=== PATIENT | male | born 1950 | race Caucasian/White ===

== ENCOUNTER 2019-04-08 13:56 | Inpatient (IN) ==
[2019-04-08 15:09] LABS: Basophils # 0.1 10*3/uL (0.0-0.2); Basophils % 0.5 % (0.0-0.8); Eosinophils % 0.1 % (0.00-10.9); Hematocrit 44.9 VOL% (42.0-52.0); Hemoglobin 15.3 GM/DL (14.0-18.0); Immature Granulocytes Absolute 0.58 #; Lymphocytes # 0.5 10*3/uL (1.4-4.0); Lymphocytes % 3.9 % (21.2-54.2); Mean Corpuscular HGB Conc 34.1 GM/DL (32-36); Mean Platelet Volume 9.2 FL (9.6-12.0); Monocytes % 5.2 % (1.7-12.7); Neutrophils % 85.3 % (38.7-73.9); Platelet Count 238 T/CUMM (130-400); Red Blood Count 5.22 MC/CUMM (3.8-5.5); Red Cell Distribution Width 16.9 % (9.3-17.3); White Blood Count 11.7 T/CUMM (4-12)
[2019-04-08 15:21] LABS: INR 0.9; PT Patient Result 10.1 SECS; Partial Thromboplastin Time 21.8 SECS (0-40)
[2019-04-08 15:38] LABS: Albumin 3.3 G/DL (3.4-5.0); Bilirubin,Total 0.9 MG/DL (0.2-1.0); Calcium 9.9 MG/DL (8.5-10.1); Osmolality,Calculated 285.5 MOS/KG (273-304); Total Protein 6.5 G/DL (6.4-8.3)
[2019-04-08] MEDS ORDERED: cefTRIAXone 1,000 MG in SODIUM CHLORIDE 0.9% 100 ML IV STA (16:40)
[2019-04-08] MEDS ORDERED: ONDANSETRON 4 MG/2 ML VIAL IV STA (16:40)
[2019-04-08] MEDS ORDERED: methylPREDNISolone SOD SUC 125 MG/2 ML VIAL IV STA (16:40)
[2019-04-08] MEDS ORDERED: ALBUTEROL 2.5 MG/3 ML NEB RESP TX SCH (17:00)
[2019-04-08 17:09] LABS: Lymphocytes 3 % (20-55); Platelet Estimate Adequate; Segmented Neutrophils 93 % (50-85); Total Cells Counted 100
[2019-04-08] MEDS ORDERED: PIPERACILLIN/TAZOBACTAM 3,375 MG in SODIUM CHLORIDE 0.9% 100 ML IV STA (18:09)
[2019-04-08 18:47] LABS: Apearance,Urine Slightly Hazy (Clear); Bilirubin,Urine Negative (Negative); Blood, Urine Negative (Negative); Calcium Oxalate Crystals,Urine Occasional /HPF (Few); Glucose,Urine (UA) Negative (Negative); Hyaline Casts,Urine 28 /LPF (0-3); Ketones,Urine Negative (Negative); Mucus,Urine Occasional /LPF (Occasional); Nitrite,Urine Negative (Negative); Protein,Urine 30 MG/DL; RBC,Urine 1 /HPF (0-4); Squamous Epithelial Cell,Urine Occasional /HPF (0-10); Urine Color Yellow (Yellow); Urine Specific Gravity 1.045 (1.001-1.035); Urine Urobilinogen < 2.0 EU/DL (0.2-1.0); WBC,Urine 2 /HPF (0-6)
[2019-04-08] MEDS ORDERED: traMADol 50 MG TABLET PO PRN (20:38)
[2019-04-08] MEDS ORDERED: NIFEdipine 10 MG CAPSULE PO PRN (20:38)
[2019-04-08] MEDS ORDERED: MORPHINE 4 MG/1 ML VIAL IV PRN (20:38)
[2019-04-08] MEDS ORDERED: ACETAMINOPHEN 325 MG TABLET PO PRN (20:38)
[2019-04-08] MEDS ORDERED: ONDANSETRON 4 MG/2 ML VIAL IV PRN (20:38)
[2019-04-08] MEDS: SODIUM CHLORIDE 0.9% 1,000 ML IV SCH (21:44)
[2019-04-08] MEDS: THEOPHYLLINE ER (24 HR) 400 MG TABLET PO SCH (21:45)
[2019-04-08] MEDS: cloNIDine 0.1 MG TABLET PO SCH (21:45)
[2019-04-08] MEDS: FLUTICASONE/SALMETEROL 500-50 DISKUS 14 DOSE INH SCH (21:46)
[2019-04-08] MEDS: MONTELUKAST 10 MG TABLET PO SCH (21:46)
[2019-04-08] MEDS: ALBUTEROL 0.4 MG/ML 30 ML/BOTTLE PO SCH (21:47)
[2019-04-08] MEDS: ENOXAPARIN 30 MG/0.3 ML SYRINGE SUBCUT SCH (21:53)
[2019-04-08] MEDS: LEVOFLOXACIN INJ 500 MG in PREMIX 1 EACH IV SCH (22:48)
[2019-04-09] MEDS ORDERED: MEROPENEM 1,000 MG in SODIUM CHLORIDE 0.9% 100 ML IV SCH
[2019-04-09] MEDS: ALBUTEROL/IPRATROPIUM 3 ML NEB RESP TX SCH ×4 (00:31→19:00)
[2019-04-09 01:06] LABS: Basophils % 0.3 % (0.0-0.8); Hematocrit 40.7 VOL% (42.0-52.0); Hemoglobin 13.6 GM/DL (14.0-18.0); Immature Granulocytes % 3.2 %; Immature Granulocytes Absolute 0.34 #; Lymphocytes # 0.2 10*3/uL (1.4-4.0); Lymphocytes % 2.3 % (21.2-54.2); Mean Corpuscular HGB Conc 33.4 GM/DL (32-36); Mean Corpuscular Volume 87.9 FL (87-102); Mean Platelet Volume 9.6 FL (9.6-12.0); Monocytes % 2.2 % (1.7-12.7); Platelet Count 224 T/CUMM (130-400); Red Blood Count 4.63 MC/CUMM (3.8-5.5); Red Cell Distribution Width 16.9 % (9.3-17.3); White Blood Count 10.6 T/CUMM (4-12)
[2019-04-09 01:15] LABS: Calcium 9.2 MG/DL (8.5-10.1); Osmolality,Calculated 290.8 MOS/KG (273-304)
[2019-04-09] MEDS: methylPREDNISolone SOD SUC 40 MG/1 ML VIAL IV SCH ×3 (02:04→16:47)
[2019-04-09 03:24] LABS: Band Neutrophils 1 % (0-10); Lymphocytes 1 % (20-55); Myelocytes 2 %; Segmented Neutrophils 96 % (50-85); Total Cells Counted 100
[2019-04-09 03:25] LABS: Anisocytosis Slight; Microcytosis 1+; Polychromasia Slight
[2019-04-09 03:26] LABS: Platelet Estimate Normal; Stomatocytes Slight
[2019-04-09] MEDS: PANTOPRAZOLE 40 MG TABLET PO SCH (09:19)
[2019-04-09] MEDS: CITALOPRAM 20 MG TABLET PO SCH (09:19)
[2019-04-09] MEDS: cloNIDine 0.1 MG TABLET PO SCH ×2 (09:19→21:15)
[2019-04-09] MEDS: THEOPHYLLINE ER (24 HR) 400 MG TABLET PO SCH ×2 (09:19→21:13)
[2019-04-09] MEDS: FLUTICASONE/SALMETEROL 500-50 DISKUS 14 DOSE INH SCH ×2 (09:22→21:12)
[2019-04-09] MEDS: ALBUTEROL 0.4 MG/ML 30 ML/BOTTLE PO SCH ×3 (09:24→21:17)
[2019-04-09] MEDS: CEFEPIME 1,000 MG in SYRINGE 1 EACH IV SCH ×2 (12:08→21:12)
[2019-04-09] MEDS: SODIUM CHLORIDE 0.9% 1,000 ML IV SCH (16:47)
[2019-04-09] MEDS: MONTELUKAST 10 MG TABLET PO SCH (21:15)
[2019-04-09] MEDS: ENOXAPARIN 30 MG/0.3 ML SYRINGE SUBCUT SCH (21:16)
[2019-04-09] MEDS: ZALEPLON 5 MG CAPSULE PO PRN (21:18)
[2019-04-09] MEDS: LEVOFLOXACIN INJ 500 MG in PREMIX 1 EACH IV SCH (22:18)
[2019-04-10] MEDS: ALBUTEROL/IPRATROPIUM 3 ML NEB RESP TX SCH ×5 (00:46→20:38)
[2019-04-10] MEDS: methylPREDNISolone SOD SUC 40 MG/1 ML VIAL IV SCH ×3 (01:19→16:45)
[2019-04-10] MEDS: SODIUM CHLORIDE 0.9% 1,000 ML IV SCH ×3 (01:20→18:13)
[2019-04-10] MEDS: CEFEPIME 1,000 MG in SYRINGE 1 EACH IV SCH ×3 (03:53→20:48)
[2019-04-10 07:50] LABS: Basophils % 0.3 % (0.0-0.8); Hematocrit 39.1 VOL% (42.0-52.0); Hemoglobin 12.5 GM/DL (14.0-18.0); Immature Granulocytes % 4.9 %; Immature Granulocytes Absolute 0.63 #; Lymphocytes # 0.3 10*3/uL (1.4-4.0); Lymphocytes % 2.6 % (21.2-54.2); Mean Corpuscular Volume 90.3 FL (87-102); Mean Platelet Volume 8.8 FL (9.6-12.0); Monocytes % 3.7 % (1.7-12.7); Neutrophils % 88.5 % (38.7-73.9); Platelet Count 181 T/CUMM (130-400); Red Blood Count 4.33 MC/CUMM (3.8-5.5); Red Cell Distribution Width 16.7 % (9.3-17.3)
[2019-04-10 08:07] LABS: Albumin 2.7 G/DL (3.4-5.0); Bilirubin,Total 0.7 MG/DL (0.2-1.0); Calcium 8.6 MG/DL (8.5-10.1); Osmolality,Calculated 286.4 MOS/KG (273-304); Total Protein 5.3 G/DL (6.4-8.3)
[2019-04-10 08:44] LABS: Lymphocytes 4 % (20-55); Segmented Neutrophils 94 % (50-85); Total Cells Counted 100
[2019-04-10 08:45] LABS: Hypochromasia 1+; Microcytosis 1+; Platelet Estimate Adequate
[2019-04-10] MEDS: CITALOPRAM 20 MG TABLET PO SCH (08:55)
[2019-04-10] MEDS: THEOPHYLLINE ER (24 HR) 400 MG TABLET PO SCH ×2 (08:56→20:50)
[2019-04-10] MEDS: PANTOPRAZOLE 40 MG TABLET PO SCH (08:57)
[2019-04-10] MEDS: ALBUTEROL 0.4 MG/ML 30 ML/BOTTLE PO SCH ×3 (09:05→21:03)
[2019-04-10] MEDS: FLUTICASONE/SALMETEROL 500-50 DISKUS 14 DOSE INH SCH ×2 (09:09→20:53)
[2019-04-10] MEDS: cloNIDine 0.1 MG TABLET PO SCH (11:27)
[2019-04-10] MEDS: MONTELUKAST 10 MG TABLET PO SCH (20:51)
[2019-04-10] MEDS: LEVOFLOXACIN INJ 500 MG in PREMIX 1 EACH IV SCH (23:04)
[2019-04-10] MEDS: ZALEPLON 5 MG CAPSULE PO PRN (23:44)
[2019-04-11] MEDS: methylPREDNISolone SOD SUC 40 MG/1 ML VIAL IV SCH ×3 (00:34→16:11)
[2019-04-11] MEDS: ALBUTEROL/IPRATROPIUM 3 ML NEB RESP TX SCH ×4 (01:42→19:50)
[2019-04-11] MEDS: SODIUM CHLORIDE 0.9% 1,000 ML IV SCH ×4 (02:51→21:47)
[2019-04-11] MEDS: CEFEPIME 1,000 MG in SYRINGE 1 EACH IV SCH ×3 (04:00→21:45)
[2019-04-11 04:50] LABS: Basophils % 0.4 % (0.0-0.8); Hematocrit 35.7 VOL% (42.0-52.0); Hemoglobin 11.5 GM/DL (14.0-18.0); Immature Granulocytes % 6.8 %; Lymphocytes # 0.2 10*3/uL (1.4-4.0); Lymphocytes % 1.6 % (21.2-54.2); Mean Corpuscular HGB Conc 32.2 GM/DL (32-36); Mean Corpuscular Volume 90.6 FL (87-102); Mean Platelet Volume 9.3 FL (9.6-12.0); Monocytes % 4.1 % (1.7-12.7); NRBC # 0.02 10*3/uL; Neutrophils % 87.1 % (38.7-73.9); Platelet Count 163 T/CUMM (130-400); Red Blood Count 3.94 MC/CUMM (3.8-5.5); Red Cell Distribution Width 16.6 % (9.3-17.3); White Blood Count 10.3 T/CUMM (4-12)
[2019-04-11 05:16] LABS: Albumin 2.5 G/DL (3.4-5.0); Bilirubin,Total 0.8 MG/DL (0.2-1.0); Calcium 8.3 MG/DL (8.5-10.1); Osmolality,Calculated 287.3 MOS/KG (273-304)
[2019-04-11 05:48] LABS: Anisocytosis 1+; Band Neutrophils 3 % (0-10); Lymphocytes 2 % (20-55); Segmented Neutrophils 94 % (50-85); Total Cells Counted 100
[2019-04-11 05:49] LABS: Platelet Estimate Adequate
[2019-04-11] MEDS: PANTOPRAZOLE 40 MG TABLET PO SCH (08:10)
[2019-04-11] MEDS: CITALOPRAM 20 MG TABLET PO SCH (08:10)
[2019-04-11] MEDS: THEOPHYLLINE ER (24 HR) 400 MG TABLET PO SCH ×2 (08:10→21:44)
[2019-04-11] MEDS: ALBUTEROL 0.4 MG/ML 30 ML/BOTTLE PO SCH ×3 (08:11→23:24)
[2019-04-11] MEDS: FLUTICASONE/SALMETEROL 500-50 DISKUS 14 DOSE INH SCH ×2 (08:11→21:43)
[2019-04-11] MEDS ORDERED: diphenhydrAMINE 50 MG/1 ML VIAL IM ONE (08:56)
[2019-04-11] MEDS ORDERED: LIDOCAINE 2% 20 ML VIAL RESP TX ONE (08:56)
[2019-04-11] MEDS ORDERED: LIDOCAINE 1% 20 ML VIAL MISC INJ ONE (08:56)
[2019-04-11] MEDS ORDERED: MEPERIDINE 50 MG/1 ML VIAL IM ONE (08:56)
[2019-04-11] MEDS ORDERED: LIDOCAINE 2% VISCOUS 100 ML BOTTLE SWISH/SPIT ONE (08:56)
[2019-04-11] MEDS ORDERED: BENZONATATE 100 MG CAPSULE PO ONE (08:59)
[2019-04-11 09:52] LABS: PT Patient Result 10.4 SECS
[2019-04-11] MEDS ORDERED: EPINEPHrine 1 MG/ML VIAL ET ONE (10:40)
[2019-04-11] MEDS ORDERED: ZALEPLON 5 MG CAPSULE PO PRN (15:38)
[2019-04-11] MEDS: MONTELUKAST 10 MG TABLET PO SCH (21:45)
[2019-04-11] MEDS: LEVOFLOXACIN INJ 500 MG in PREMIX 1 EACH IV SCH (23:22)
[2019-04-12] MEDS: ALBUTEROL 0.4 MG/ML 30 ML/BOTTLE PO SCH ×4 (00:26→22:01)
[2019-04-12] MEDS: SODIUM CHLORIDE 0.9% 1,000 ML IV SCH (01:35)
[2019-04-12] MEDS: methylPREDNISolone SOD SUC 40 MG/1 ML VIAL IV SCH ×3 (01:36→17:13)
[2019-04-12] MEDS: ALBUTEROL/IPRATROPIUM 3 ML NEB RESP TX SCH ×4 (01:40→19:18)
[2019-04-12] MEDS: CEFEPIME 1,000 MG in SYRINGE 1 EACH IV SCH ×3 (04:01→20:37)
[2019-04-12 05:32] LABS: Basophils % 0.5 % (0.0-0.8); Eosinophils % 0.1 % (0.00-10.9); Hematocrit 34.9 VOL% (42.0-52.0); Hemoglobin 11.4 GM/DL (14.0-18.0); Immature Granulocytes % 9.3 %; Lymphocytes # 0.2 10*3/uL (1.4-4.0); Lymphocytes % 2.4 % (21.2-54.2); Mean Corpuscular HGB Conc 32.7 GM/DL (32-36); Mean Corpuscular Volume 90.4 FL (87-102); Mean Platelet Volume 9.5 FL (9.6-12.0); Monocytes % 3.8 % (1.7-12.7); NRBC # 0.04 10*3/uL; Neutrophils % 83.9 % (38.7-73.9); Platelet Count 143 T/CUMM (130-400); Red Blood Count 3.86 MC/CUMM (3.8-5.5); Red Cell Distribution Width 16.9 % (9.3-17.3); White Blood Count 8.6 T/CUMM (4-12)
[2019-04-12 05:49] LABS: Albumin 2.5 G/DL (3.4-5.0); Bilirubin,Total 0.9 MG/DL (0.2-1.0); Calcium 8.1 MG/DL (8.5-10.1); Osmolality,Calculated 288.1 MOS/KG (273-304); Total Protein 4.7 G/DL (6.4-8.3)
[2019-04-12 06:35] LABS: Anisocytosis 1+; Band Neutrophils 11 % (0-10); Lymphocytes 8 % (20-55); Macrocytosis Slight; Platelet Estimate Adequate; Segmented Neutrophils 75 % (50-85); Total Cells Counted 100
[2019-04-12] MEDS ORDERED: EPINEPHrine 1 MG/ML VIAL ONE (06:40)
[2019-04-12] MEDS: CITALOPRAM 20 MG TABLET PO SCH (07:59)
[2019-04-12] MEDS: THEOPHYLLINE ER (24 HR) 400 MG TABLET PO SCH ×2 (07:59→21:59)
[2019-04-12] MEDS: PANTOPRAZOLE 40 MG TABLET PO SCH (08:00)
[2019-04-12] MEDS: FLUTICASONE/SALMETEROL 500-50 DISKUS 14 DOSE INH SCH ×2 (08:01→20:44)
[2019-04-12] MEDS: MONTELUKAST 10 MG TABLET PO SCH (21:59)
[2019-04-12] MEDS: LEVOFLOXACIN INJ 500 MG in PREMIX 1 EACH IV SCH (23:37)
[2019-04-13] MEDS: methylPREDNISolone SOD SUC 40 MG/1 ML VIAL IV SCH ×3 (00:40→16:11)
[2019-04-13] MEDS: ALBUTEROL/IPRATROPIUM 3 ML NEB RESP TX SCH ×4 (01:00→20:00)
[2019-04-13] MEDS: CEFEPIME 1,000 MG in SYRINGE 1 EACH IV SCH ×3 (04:30→23:06)
[2019-04-13] MEDS: THEOPHYLLINE ER (24 HR) 400 MG TABLET PO SCH ×2 (08:35→23:05)
[2019-04-13] MEDS: ALBUTEROL 0.4 MG/ML 30 ML/BOTTLE PO SCH ×3 (08:36→23:08)
[2019-04-13] MEDS: PANTOPRAZOLE 40 MG TABLET PO SCH (08:36)
[2019-04-13] MEDS: FLUTICASONE/SALMETEROL 500-50 DISKUS 14 DOSE INH SCH ×2 (08:36→23:07)
[2019-04-13] MEDS: CITALOPRAM 20 MG TABLET PO SCH (08:36)
[2019-04-13 08:56] LABS: Basophils # 0.1 10*3/uL (0.0-0.2); Basophils % 0.9 % (0.0-0.8); Eosinophils % 0.1 % (0.00-10.9); Hemoglobin 12.7 GM/DL (14.0-18.0); Immature Granulocytes % 9.6 %; Immature Granulocytes Absolute 0.88 #; Lymphocytes # 0.3 10*3/uL (1.4-4.0); Lymphocytes % 3.3 % (21.2-54.2); Mean Corpuscular HGB Conc 33.4 GM/DL (32-36); Mean Corpuscular Volume 88.8 FL (87-102); Mean Platelet Volume 9.7 FL (9.6-12.0); Monocytes % 3.7 % (1.7-12.7); NRBC # 0.07 10*3/uL; Neutrophils % 82.4 % (38.7-73.9); Platelet Count 161 T/CUMM (130-400); Red Blood Count 4.28 MC/CUMM (3.8-5.5); Red Cell Distribution Width 16.9 % (9.3-17.3); White Blood Count 9.2 T/CUMM (4-12)
[2019-04-13 09:19] LABS: Albumin 2.7 G/DL (3.4-5.0); Calcium 8.3 MG/DL (8.5-10.1); Osmolality,Calculated 288.3 MOS/KG (273-304); Total Protein 5.1 G/DL (6.4-8.3)
[2019-04-13 09:33] LABS: Atypical Lymphocytes Few; Band Neutrophils 2 % (0-10); Lymphocytes 10 % (20-55); Microcytosis 1+; Nucleated Red Blood Cells 1 (0-5); Promyelocytes 2 %; Segmented Neutrophils 85 % (50-85); Total Cells Counted 100
[2019-04-13 09:34] LABS: Hypochromasia 1+; Polychromasia Slight
[2019-04-13 09:35] LABS: Platelet Estimate Adequate
[2019-04-13] MEDS ORDERED: SODIUM CHLORIDE 0.9% 1,000 ML IV SCH (11:30)
[2019-04-13] MEDS: LEVOFLOXACIN INJ 500 MG in PREMIX 1 EACH IV SCH (23:04)
[2019-04-13] MEDS: MONTELUKAST 10 MG TABLET PO SCH (23:06)
[2019-04-14] MEDS: ALBUTEROL/IPRATROPIUM 3 ML NEB RESP TX SCH ×4 (00:59→19:15)
[2019-04-14] MEDS: methylPREDNISolone SOD SUC 40 MG/1 ML VIAL IV SCH ×3 (01:52→22:01)
[2019-04-14] MEDS: CEFEPIME 1,000 MG in SYRINGE 1 EACH IV SCH ×3 (05:04→22:01)
[2019-04-14 05:45] LABS: Basophils # 0.1 10*3/uL (0.0-0.2); Basophils % 0.7 % (0.0-0.8); Eosinophils % 0.3 % (0.00-10.9); Hematocrit 38.1 VOL% (42.0-52.0); Hemoglobin 12.4 GM/DL (14.0-18.0); Immature Granulocytes Absolute 0.82 #; Lymphocytes # 0.2 10*3/uL (1.4-4.0); Lymphocytes % 2.3 % (21.2-54.2); Mean Corpuscular HGB Conc 32.5 GM/DL (32-36); Mean Corpuscular Volume 89.4 FL (87-102); Mean Platelet Volume 9.4 FL (9.6-12.0); Monocytes % 3.3 % (1.7-12.7); NRBC # 0.02 10*3/uL; Neutrophils % 85.4 % (38.7-73.9); Platelet Count 158 T/CUMM (130-400); Red Blood Count 4.26 MC/CUMM (3.8-5.5); Red Cell Distribution Width 17.1 % (9.3-17.3); White Blood Count 10.2 T/CUMM (4-12)
[2019-04-14 06:05] LABS: Albumin 2.7 G/DL (3.4-5.0); Bilirubin,Total 1.1 MG/DL (0.2-1.0); Calcium 8.3 MG/DL (8.5-10.1); Osmolality,Calculated 289.1 MOS/KG (273-304); Total Protein 5.4 G/DL (6.4-8.3)
[2019-04-14 07:30] LABS: Atypical Lymphocytes Few; Lymphocytes 7 % (20-55); Metamyelocytes 1 %; Myelocytes 1 %; Nucleated Red Blood Cells 1 (0-5); Segmented Neutrophils 88 % (50-85); Total Cells Counted 100
[2019-04-14 07:31] LABS: Anisocytosis 1+; Hypochromasia 1+; Microcytosis 1+; Platelet Estimate Adequate
[2019-04-14] MEDS: PANTOPRAZOLE 40 MG TABLET PO SCH (08:10)
[2019-04-14] MEDS: THEOPHYLLINE ER (24 HR) 400 MG TABLET PO SCH ×2 (08:10→22:00)
[2019-04-14] MEDS: CITALOPRAM 20 MG TABLET PO SCH (08:10)
[2019-04-14] MEDS: ALBUTEROL 0.4 MG/ML 30 ML/BOTTLE PO SCH ×3 (08:11→22:02)
[2019-04-14] MEDS: FLUTICASONE/SALMETEROL 500-50 DISKUS 14 DOSE INH SCH ×2 (08:14→22:02)
[2019-04-14] MEDS: MONTELUKAST 10 MG TABLET PO SCH (22:00)
[2019-04-15] MEDS: ALBUTEROL/IPRATROPIUM 3 ML NEB RESP TX SCH ×4 (00:30→19:00)
[2019-04-15] MEDS: CEFEPIME 1,000 MG in SYRINGE 1 EACH IV SCH ×3 (04:50→20:43)
[2019-04-15] MEDS: FLUTICASONE/SALMETEROL 500-50 DISKUS 14 DOSE INH SCH ×2 (09:15→20:42)
[2019-04-15] MEDS: CITALOPRAM 20 MG TABLET PO SCH (09:15)
[2019-04-15] MEDS: PANTOPRAZOLE 40 MG TABLET PO SCH (09:16)
[2019-04-15] MEDS: THEOPHYLLINE ER (24 HR) 400 MG TABLET PO SCH ×2 (09:16→20:42)
[2019-04-15] MEDS: methylPREDNISolone SOD SUC 40 MG/1 ML VIAL IV SCH ×2 (09:17→20:43)
[2019-04-15] MEDS: ALBUTEROL 0.4 MG/ML 30 ML/BOTTLE PO SCH ×3 (09:22→20:45)
[2019-04-15] MEDS: MONTELUKAST 10 MG TABLET PO SCH (20:42)
[2019-04-16] MEDS: ALBUTEROL/IPRATROPIUM 3 ML NEB RESP TX SCH ×2 (00:20→08:19)
[2019-04-16] MEDS: CEFEPIME 1,000 MG in SYRINGE 1 EACH IV SCH (04:36)
[2019-04-16 04:50] LABS: Basophils # 0.1 10*3/uL (0.0-0.2); Basophils % 0.5 % (0.0-0.8); Hemoglobin 12.8 GM/DL (14.0-18.0); Immature Granulocytes % 5.8 %; Immature Granulocytes Absolute 0.63 #; Lymphocytes # 0.3 10*3/uL (1.4-4.0); Lymphocytes % 2.4 % (21.2-54.2); Mean Corpuscular HGB Conc 32.8 GM/DL (32-36); Mean Corpuscular Volume 88.8 FL (87-102); Mean Platelet Volume 9.8 FL (9.6-12.0); Monocytes % 3.9 % (1.7-12.7); NRBC # 0.03 10*3/uL; Neutrophils % 87.4 % (38.7-73.9); Platelet Count 177 T/CUMM (130-400); Red Blood Count 4.39 MC/CUMM (3.8-5.5); Red Cell Distribution Width 17.4 % (9.3-17.3); White Blood Count 10.9 T/CUMM (4-12)
[2019-04-16 05:07] LABS: Calcium 8.7 MG/DL (8.5-10.1); Osmolality,Calculated 288.3 MOS/KG (273-304)
[2019-04-16 06:20] LABS: Band Neutrophils 1 % (0-10); Hypochromasia 1+; Lymphocytes 3 % (20-55); Microcytosis 1+; Nucleated Red Blood Cells 1 (0-5); Platelet Estimate Adequate; Segmented Neutrophils 96 % (50-85); Total Cells Counted 100
[2019-04-16] MEDS: THEOPHYLLINE ER (24 HR) 400 MG TABLET PO SCH (09:00)
[2019-04-16] MEDS ORDERED: POTASSIUM CHLORIDE 8 MEQ CAPSULE PO SCH (09:00)
[2019-04-16] MEDS: CITALOPRAM 20 MG TABLET PO SCH (09:01)
[2019-04-16] MEDS: PANTOPRAZOLE 40 MG TABLET PO SCH (09:01)
[2019-04-16] MEDS: ALBUTEROL 0.4 MG/ML 30 ML/BOTTLE PO SCH (09:01)
[2019-04-16] MEDS: methylPREDNISolone SOD SUC 40 MG/1 ML VIAL IV SCH (09:01)
[2019-04-16] MEDS: FLUTICASONE/SALMETEROL 500-50 DISKUS 14 DOSE INH SCH (09:02)
[2019-04-16 11:35] VITALS: BP 129/88
== END 2019-04-16 14:32 | disposition home or self-care (01) | DRG 180 ==
LOC: N.ED 13:56 → N.EDINP 18:06 → SUATTDRO 18:06 → N.5E 19:14
PROVIDERS: ADMIT Internal Medicine; ATTEND Hospitalist
PROC: BRONCHB (2019-04-11 10:05)

== ENCOUNTER 2019-05-13 14:15 | Inpatient (IN) ==
[2019-05-13] MEDS ORDERED: ROCURONIUM 100 MG/10 ML VIAL IV ONE (14:28)
[2019-05-13] MEDS ORDERED: SODIUM CHLORIDE 0.9% 1,000 ML IV STA ×2 (14:28→14:31)
[2019-05-13] MEDS ORDERED: ETOMIDATE 20 MG/10 ML VIAL IV ONE (14:28)
[2019-05-13 14:52] LABS: Basophils % 1.4 % (0.0-0.8); Eosinophils % 0.5 % (0.00-10.9); Hematocrit 32.4 VOL% (42.0-52.0); Immature Granulocytes % 2.7 %; Immature Granulocytes Absolute 0.06 #; Lymphocytes # 0.8 10*3/uL (1.4-4.0); Lymphocytes % 34.8 % (21.2-54.2); Mean Corpuscular Volume 88.8 FL (87-102); Mean Platelet Volume 9.8 FL (9.6-12.0); NRBC # 0.02 10*3/uL; Neutrophils % 36.6 % (38.7-73.9); Platelet Count 195 T/CUMM (130-400); Red Blood Count 3.65 MC/CUMM (3.8-5.5); Red Cell Distribution Width 15.9 % (9.3-17.3); White Blood Count 2.2 T/CUMM (4-12)
[2019-05-13 14:53] LABS: ABG Base Excess 3.5 MMOL/L (-2.5-2.5); ABG HCO3 27.6 MMOL/L (20-26); ABG PCO2 37.7 MM HG (35-48); ABG PH 7.467 (7.35-7.45); ABG TCO2 24.3 MMOL/L (23-27)
[2019-05-13] MEDS ORDERED: ACETAMINOPHEN 650 MG SUPP RECTAL ONE (15:03)
[2019-05-13] MEDS ORDERED: dilTIAZem Drip 125 MG/125 ML PREMIX IV ONE (15:04)
[2019-05-13] MEDS ORDERED: DILTIAZEM 25 MG/5 ML VIAL IV ONE (15:04)
[2019-05-13 15:07] LABS: Apearance,Urine Slightly Hazy (Clear); Bacteria,Urine Occasional /HPF (Few); Bilirubin,Urine Negative (Negative); Blood, Urine Negative (Negative); Glucose,Urine (UA) Negative (Negative); Hyaline Casts,Urine 1 /LPF (0-3); Ketones,Urine 5 mg/dL (Negative); Mucus,Urine Occasional /LPF (Occasional); Nitrite,Urine Negative (Negative); Protein,Urine 100 MG/DL; RBC,Urine 3 /HPF (0-4); Squamous Epithelial Cell,Urine Occasional /HPF (0-10); Urine Color Amber (Yellow); Urine Specific Gravity 1.015 (1.001-1.035); WBC,Urine 5 /HPF (0-6)
[2019-05-13] MEDS ORDERED: DILTIAZEM 50 MG/10 ML VIAL IV STA (15:12)
[2019-05-13] MEDS ORDERED: ACETAMINOPHEN 650 MG SUPP RECTAL STA (15:13)
[2019-05-13 15:20] LABS: Albumin 2.7 G/DL (3.4-5.0); Bilirubin,Total 2.2 MG/DL (0.2-1.0); Calcium 8.5 MG/DL (8.5-10.1); Osmolality,Calculated 276.5 MOS/KG (273-304); Total Protein 6.6 G/DL (6.4-8.3)
[2019-05-13] MEDS ORDERED: PIPERACILLIN/TAZOBACTAM 3,375 MG in SODIUM CHLORIDE 0.9% 100 ML IV STA (15:25)
[2019-05-13] MEDS ORDERED: dilTIAZem Drip 125 MG/125 ML PREMIX IV SCH (15:30)
[2019-05-13 15:31] LABS: Lymphocytes 35 % (20-55); Segmented Neutrophils 36 % (50-85); Total Cells Counted 100
[2019-05-13 15:32] LABS: Anisocytosis Slight; Hypochromasia Slight; Microcytosis Slight; Platelet Estimate Normal
[2019-05-13] MEDS: PROPOFOL 1,000 MG/100 ML BOTTLE IV SCH ×2 (15:46→22:01)
[2019-05-13] MEDS ORDERED: ONDANSETRON 4 MG/2 ML VIAL IV PRN (16:13)
[2019-05-13] MEDS ORDERED: ALBUTEROL 2.5 MG/3 ML NEB RESP TX PRN (16:13)
[2019-05-13] MEDS ORDERED: MORPHINE 4 MG/1 ML VIAL IV PRN (16:13)
[2019-05-13] MEDS ORDERED: ALBUTEROL/IPRATROPIUM 3 ML NEB RESP TX PRN (16:13)
[2019-05-13] MEDS ORDERED: LACTULOSE 20 GM/30 ML UDCUP PO PRN (16:13)
[2019-05-13] MEDS: SODIUM CHLORIDE 0.9% 1,000 ML IV SCH (16:58)
[2019-05-13 17:02] LABS: INR 1.1; PT Patient Result 11.4 SECS
[2019-05-13] MEDS ORDERED: FILGRASTIM-SNDZ 300 MCG/0.5 ML SYRINGE SUBCUT ONE (18:43)
[2019-05-13] MEDS ORDERED: NOREPINEPHRINE 8 MG in SODIUM CHLORIDE 0.9% 242 ML IV PRN (19:05)
[2019-05-13] MEDS ORDERED: hydrALAZINE 20 MG/1 ML VIAL IV PRN (20:12)
[2019-05-13] MEDS: cefTAZidime 2,000 MG in SYRINGE 1 EACH IV SCH (20:47)
[2019-05-13] MEDS: ENOXAPARIN 100 MG/ML SYRINGE SUBCUT SCH (20:47)
[2019-05-13] MEDS: FAMOTIDINE 20 MG/2 ML VIAL IV SCH (20:47)
[2019-05-13] MEDS: methylPREDNISolone SOD SUC 40 MG/1 ML VIAL IV SCH (20:48)
[2019-05-13] MEDS: VANCOMYCIN INJ 1,500 MG in SODIUM CHLORIDE 0.9% 500 ML IV SCH (22:01)
[2019-05-13] MEDS ORDERED: SODIUM CHLORIDE 0.9% 250 ML IV ONE (23:30)
[2019-05-13] MEDS: POTASSIUM CHLORIDE 20 MEQ/15 ML UDCUP PER TUBE PRN (23:45)
[2019-05-14] MEDS: POTASSIUM CHLORIDE 20 MEQ/15 ML UDCUP PER TUBE PRN ×3 (01:41→09:57)
[2019-05-14] MEDS: PROPOFOL 1,000 MG/100 ML BOTTLE IV SCH ×5 (01:41→20:30)
[2019-05-14] MEDS ORDERED: SODIUM CHLORIDE 0.9% 500 ML IV ONE (03:41)
[2019-05-14] MEDS: cefTAZidime 2,000 MG in SYRINGE 1 EACH IV SCH ×2 (03:48→11:54)
[2019-05-14] MEDS: methylPREDNISolone SOD SUC 40 MG/1 ML VIAL IV SCH ×3 (03:48→21:11)
[2019-05-14 04:34] LABS: ABG HCO3 25.3 MMOL/L (20-26); ABG Oxygen Saturation 99.1 % (95-100); ABG PCO2 34.6 MM HG (35-48); ABG PH 7.457 (7.35-7.45); ABG TCO2 21.6 MMOL/L (23-27)
[2019-05-14] MEDS: SODIUM CHLORIDE 0.9% 1,000 ML IV SCH ×4 (05:03→22:37)
[2019-05-14 05:48] LABS: Basophils % 0.8 % (0.0-0.8); Eosinophils # 0.1 10*3/uL (0.0-0.87); Eosinophils % 1.4 % (0.00-10.9); Hematocrit 26.9 VOL% (42.0-52.0); Hemoglobin 8.9 GM/DL (14.0-18.0); Immature Granulocytes % 1.2 %; Immature Granulocytes Absolute 0.06 #; Lymphocytes # 0.4 10*3/uL (1.4-4.0); Lymphocytes % 8.7 % (21.2-54.2); Mean Corpuscular HGB Conc 33.1 GM/DL (32-36); Mean Corpuscular Volume 91.2 FL (87-102); Mean Platelet Volume 10.3 FL (9.6-12.0); Monocytes % 8.3 % (1.7-12.7); NRBC # 0.04 10*3/uL; Neutrophils % 79.6 % (38.7-73.9); Platelet Count 137 T/CUMM (130-400); Red Blood Count 2.95 MC/CUMM (3.8-5.5); Red Cell Distribution Width 16.4 % (9.3-17.3); White Blood Count 5.1 T/CUMM (4-12)
[2019-05-14 06:04] LABS: INR 1.1; PT Patient Result 12.2 SECS
[2019-05-14 06:06] LABS: Albumin 1.9 G/DL (3.4-5.0); Bilirubin,Total 1.6 MG/DL (0.2-1.0); Calcium 7.7 MG/DL (8.5-10.1); Osmolality,Calculated 280.1 MOS/KG (273-304); Total Protein 5.2 G/DL (6.4-8.3)
[2019-05-14 06:15] LABS: Band Neutrophils 14 % (0-10); Eosinophils 4 % (0-10); Hypochromasia 1+; Lymphocytes 10 % (20-55); Nucleated Red Blood Cells 3 (0-5); Platelet Estimate Normal; Segmented Neutrophils 67 % (50-85); Total Cells Counted 100
[2019-05-14 06:16] LABS: Microcytosis Slight
[2019-05-14] MEDS ORDERED: MAGNESIUM SULF RIDER 4 GM in PREMIX 1 EACH IV PRN (06:18)
[2019-05-14] MEDS: ENOXAPARIN 100 MG/ML SYRINGE SUBCUT SCH (07:18)
[2019-05-14] MEDS: MAGNESIUM SULF RIDER 2 GM in PREMIX 1 EACH IV PRN ×2 (07:28→10:14)
[2019-05-14] MEDS ORDERED: FILGRASTIM-SNDZ 480 MCG/0.8 ML SYRINGE SUBCUT SCH (09:00)
[2019-05-14] MEDS ORDERED: GLUCAGON 1 MG VIAL IM PRN (09:01)
[2019-05-14] MEDS ORDERED: DEXTROSE 50% 25 GM/50 ML VIAL IV PRN (09:01)
[2019-05-14] MEDS ORDERED: LORazepam 2 MG/1 ML VIAL ONE ×4 (09:11→17:58)
[2019-05-14] MEDS: MORPHINE 4 MG/1 ML VIAL IV SCH ×5 (09:14→21:17)
[2019-05-14] MEDS: LORazepam 2 MG/1 ML VIAL IV SCH ×5 (09:14→21:19)
[2019-05-14] MEDS: FAMOTIDINE 20 MG/2 ML VIAL IV SCH ×2 (09:57→21:14)
[2019-05-14] MEDS: ACETAMINOPHEN 325 MG TABLET PO PRN (09:58)
[2019-05-14] MEDS: CITALOPRAM 20 MG TABLET PO SCH (09:58)
[2019-05-14] MEDS: ATORVASTATIN 20 MG TABLET PO SCH (09:58)
[2019-05-14] MEDS: ALBUTEROL 0.4 MG/ML 30 ML/BOTTLE PER TUBE SCH ×3 (09:58→21:09)
[2019-05-14] MEDS: ASPIRIN CHEW 81 MG TABLET PO SCH (09:58)
[2019-05-14] MEDS: EZETIMIBE 10 MG TABLET PO SCH (09:58)
[2019-05-14] MEDS: MONTELUKAST 10 MG TABLET PO SCH ×2 (09:58→21:10)
[2019-05-14] MEDS: VANCOMYCIN INJ 1,500 MG in SODIUM CHLORIDE 0.9% 500 ML IV SCH ×2 (10:10→21:10)
[2019-05-14] MEDS: THEOPHYLLINE 5.33 MG/ML 30 ML/BOTTLE PER TUBE SCH ×3 (12:29→21:08)
[2019-05-14] MEDS: INSULIN REGULAR 100 UNIT/ML SUBCUT SCH ×2 (12:36→19:07)
[2019-05-14] MEDS: PIPERACILLIN/TAZOBACTAM 3,375 MG in SODIUM CHLORIDE 0.9% 100 ML IV SCH ×2 (13:06→21:10)
[2019-05-15] MEDS: INSULIN REGULAR 100 UNIT/ML SUBCUT SCH ×4 (00:35→18:40)
[2019-05-15] MEDS: LORazepam 2 MG/1 ML VIAL IV SCH ×8 (00:50→20:49)
[2019-05-15] MEDS: MORPHINE 4 MG/1 ML VIAL IV SCH ×8 (00:52→20:50)
[2019-05-15] MEDS: PROPOFOL 1,000 MG/100 ML BOTTLE IV SCH ×2 (01:33→12:20)
[2019-05-15] MEDS: SODIUM CHLORIDE 0.9% 1,000 ML IV SCH ×2 (01:33→12:20)
[2019-05-15] MEDS: THEOPHYLLINE 5.33 MG/ML 30 ML/BOTTLE PER TUBE SCH ×4 (03:25→20:48)
[2019-05-15] MEDS: PIPERACILLIN/TAZOBACTAM 3,375 MG in SODIUM CHLORIDE 0.9% 100 ML IV SCH ×3 (03:25→18:30)
[2019-05-15] MEDS: methylPREDNISolone SOD SUC 40 MG/1 ML VIAL IV SCH ×3 (03:26→20:49)
[2019-05-15 04:57] LABS: ABG Base Excess -2.7 MMOL/L (-2.5-2.5); ABG HCO3 20.1 MMOL/L (20-26); ABG Oxygen Saturation 98.1 % (95-100); ABG PCO2 28.7 MM HG (35-48); ABG PH 7.463 (7.35-7.45); ABG PO2 132.9 MM HG (80-95); Allen Test Positive; Pt O2 Delivery Device Ventilator
[2019-05-15 05:39] LABS: Calcium 7.9 MG/DL (8.5-10.1); Osmolality,Calculated 288.8 MOS/KG (273-304)
[2019-05-15 06:07] LABS: Prealbumin 6.2 MG/DL (20-40)
[2019-05-15] MEDS: POTASSIUM CHLORIDE 20 MEQ/15 ML UDCUP PER TUBE PRN ×2 (06:15→08:20)
[2019-05-15 07:18] LABS: Basophils % 0.1 % (0.0-0.8); Hematocrit 27.6 VOL% (42.0-52.0); Immature Granulocytes % 8.6 %; Immature Granulocytes Absolute 1.34 #; Lymphocytes # 0.4 10*3/uL (1.4-4.0); Lymphocytes % 2.8 % (21.2-54.2); Mean Corpuscular HGB Conc 32.6 GM/DL (32-36); Mean Corpuscular Volume 91.1 FL (87-102); Mean Platelet Volume 10.4 FL (9.6-12.0); NRBC # 0.02 10*3/uL; Neutrophils % 85.5 % (38.7-73.9); Platelet Count 181 T/CUMM (130-400); Red Blood Count 3.03 MC/CUMM (3.8-5.5); Red Cell Distribution Width 16.2 % (9.3-17.3); White Blood Count 15.5 T/CUMM (4-12)
[2019-05-15 07:48] LABS: Band Neutrophils 11 % (0-10); Hypochromasia 1+; Lymphocytes 2 % (20-55); Ovalocytes Slight; Platelet Estimate Adequate; Segmented Neutrophils 85 % (50-85); Total Cells Counted 100
[2019-05-15 07:53] LABS: Microcytosis Slight
[2019-05-15] MEDS: ASPIRIN CHEW 81 MG TABLET PO SCH (08:20)
[2019-05-15] MEDS: ATORVASTATIN 20 MG TABLET PO SCH (08:20)
[2019-05-15] MEDS: ALBUTEROL 0.4 MG/ML 30 ML/BOTTLE PER TUBE SCH ×3 (08:20→20:47)
[2019-05-15] MEDS: EZETIMIBE 10 MG TABLET PO SCH (08:20)
[2019-05-15] MEDS: CITALOPRAM 20 MG TABLET PO SCH (08:20)
[2019-05-15] MEDS ORDERED: FILGRASTIM-SNDZ 300 MCG/0.5 ML SYRINGE SUBCUT SCH (09:00)
[2019-05-15] MEDS: VANCOMYCIN INJ 1,500 MG in SODIUM CHLORIDE 0.9% 500 ML IV SCH ×2 (09:40→22:18)
[2019-05-15] MEDS: ENOXAPARIN 40 MG/0.4 ML SYRINGE SUBCUT SCH (09:40)
[2019-05-15] MEDS: FAMOTIDINE 20 MG/2 ML VIAL IV SCH ×2 (09:40→20:48)
[2019-05-15] MEDS: MONTELUKAST 10 MG TABLET PO SCH ×2 (09:40→20:47)
[2019-05-15] MEDS: POTASSIUM CHLORIDE RIDER 10 MEQ in PREMIX 1 EACH IV PRN ×3 (10:10→14:00)
[2019-05-15] MEDS ORDERED: POTASSIUM PHOSPHATE IV ONE (13:00)
[2019-05-15] MEDS ORDERED: SODIUM CHLORIDE 0.9% IV ONE (13:00)
[2019-05-16] MEDS: SODIUM CHLORIDE 0.9% 1,000 ML IV SCH ×4 (00:16→21:32)
[2019-05-16] MEDS: LORazepam 2 MG/1 ML VIAL IV SCH ×5 (00:36→12:00)
[2019-05-16] MEDS: INSULIN REGULAR 100 UNIT/ML SUBCUT SCH ×4 (00:36→18:25)
[2019-05-16] MEDS: MORPHINE 4 MG/1 ML VIAL IV SCH ×5 (00:36→12:00)
[2019-05-16] MEDS: PROPOFOL 1,000 MG/100 ML BOTTLE IV SCH ×5 (02:21→22:08)
[2019-05-16] MEDS: THEOPHYLLINE 5.33 MG/ML 30 ML/BOTTLE PER TUBE SCH ×4 (02:46→20:50)
[2019-05-16] MEDS: PIPERACILLIN/TAZOBACTAM 3,375 MG in SODIUM CHLORIDE 0.9% 100 ML IV SCH ×3 (02:46→18:15)
[2019-05-16 03:09] LABS: ABG Base Excess -0.9 MMOL/L (-2.5-2.5); ABG HCO3 23.7 MMOL/L (20-26); ABG Oxygen Saturation 99.6 % (95-100); ABG PCO2 33.4 MM HG (35-48); ABG PH 7.442 (7.35-7.45); ABG TCO2 21.1 MMOL/L (23-27); Allen Test Positive; Pt O2 Delivery Device Ventilator
[2019-05-16 06:03] LABS: Basophils # 0.1 10*3/uL (0.0-0.2); Basophils % 0.5 % (0.0-0.8); Hematocrit 26.5 VOL% (42.0-52.0); Hemoglobin 8.8 GM/DL (14.0-18.0); Immature Granulocytes % 10.4 %; Immature Granulocytes Absolute 1.64 #; Lymphocytes # 0.4 10*3/uL (1.4-4.0); Lymphocytes % 2.5 % (21.2-54.2); Mean Corpuscular HGB Conc 33.2 GM/DL (32-36); Mean Corpuscular Volume 90.4 FL (87-102); Mean Platelet Volume 10.8 FL (9.6-12.0); Monocytes % 4.4 % (1.7-12.7); NRBC # 0.04 10*3/uL; Neutrophils % 82.2 % (38.7-73.9); Platelet Count 188 T/CUMM (130-400); Red Blood Count 2.93 MC/CUMM (3.8-5.5); Red Cell Distribution Width 16.6 % (9.3-17.3); White Blood Count 15.8 T/CUMM (4-12)
[2019-05-16] MEDS: methylPREDNISolone SOD SUC 40 MG/1 ML VIAL IV SCH ×3 (06:08→20:49)
[2019-05-16 06:20] LABS: Partial Thromboplastin Time 32.2 SECS (0-40)
[2019-05-16 06:26] LABS: Calcium 7.5 MG/DL (8.5-10.1); Osmolality,Calculated 293.4 MOS/KG (273-304)
[2019-05-16 06:38] LABS: Prealbumin 8.5 MG/DL (20-40)
[2019-05-16 06:45] LABS: Band Neutrophils 10 % (0-10); Lymphocytes 3 % (20-55); Platelet Estimate Adequate; Segmented Neutrophils 81 % (50-85); Total Cells Counted 100
[2019-05-16 06:46] LABS: Polychromasia Slight
[2019-05-16] MEDS: CITALOPRAM 20 MG TABLET PO SCH (08:10)
[2019-05-16] MEDS: ASPIRIN CHEW 81 MG TABLET PO SCH (08:10)
[2019-05-16] MEDS: ATORVASTATIN 20 MG TABLET PO SCH (08:10)
[2019-05-16] MEDS: ALBUTEROL 0.4 MG/ML 30 ML/BOTTLE PER TUBE SCH ×3 (08:10→20:51)
[2019-05-16] MEDS: POTASSIUM CHLORIDE RIDER 10 MEQ in PREMIX 1 EACH IV PRN ×4 (08:20→19:05)
[2019-05-16] MEDS: MAGNESIUM SULF RIDER 2 GM in PREMIX 1 EACH IV PRN (08:20)
[2019-05-16] MEDS ORDERED: LORazepam 2 MG/1 ML VIAL ONE (09:37)
[2019-05-16] MEDS: EZETIMIBE 10 MG TABLET PO SCH (09:45)
[2019-05-16] MEDS: ENOXAPARIN 40 MG/0.4 ML SYRINGE SUBCUT SCH (09:50)
[2019-05-16] MEDS: FAMOTIDINE 20 MG/2 ML VIAL IV SCH ×2 (09:50→20:49)
[2019-05-16] MEDS ORDERED: POTASSIUM PHOSPHATE 20 MMOL in SODIUM CHLORIDE 0.9% 100 ML IV ONE (10:00)
[2019-05-16] MEDS: VANCOMYCIN INJ 1,500 MG in SODIUM CHLORIDE 0.9% 500 ML IV SCH ×2 (10:10→20:52)
[2019-05-16] MEDS: MONTELUKAST 10 MG TABLET PO SCH ×2 (11:10→20:52)
[2019-05-16] MEDS ORDERED: LORazepam 2 MG/1 ML VIAL IV PRN (14:14)
[2019-05-16] MEDS: MORPHINE 4 MG/1 ML VIAL IV PRN (20:54)
[2019-05-17] MEDS: SODIUM CHLORIDE 0.9% 1,000 ML IV SCH (00:30)
[2019-05-17] MEDS: MORPHINE 4 MG/1 ML VIAL IV PRN ×2 (00:30→04:29)
[2019-05-17] MEDS: INSULIN REGULAR 100 UNIT/ML SUBCUT SCH ×4 (00:30→18:13)
[2019-05-17] MEDS: PROPOFOL 1,000 MG/100 ML BOTTLE IV SCH ×7 (02:18→22:39)
[2019-05-17] MEDS: PIPERACILLIN/TAZOBACTAM 3,375 MG in SODIUM CHLORIDE 0.9% 100 ML IV SCH ×3 (03:30→19:25)
[2019-05-17] MEDS: THEOPHYLLINE 5.33 MG/ML 30 ML/BOTTLE PER TUBE SCH ×4 (03:30→20:04)
[2019-05-17] MEDS: methylPREDNISolone SOD SUC 40 MG/1 ML VIAL IV SCH ×3 (03:31→19:30)
[2019-05-17 03:49] LABS: ABG Base Excess 0.2 MMOL/L (-2.5-2.5); ABG HCO3 24.6 MMOL/L (20-26); ABG Oxygen Saturation 98.2 % (95-100); ABG PCO2 33.2 MM HG (35-48); ABG PH 7.459 (7.35-7.45); ABG PO2 98.5 MM HG (80-95); ABG TCO2 21.3 MMOL/L (23-27); Allen Test Positive; Pt O2 Delivery Device Ventilator
[2019-05-17 05:42] LABS: Basophils # 0.1 10*3/uL (0.0-0.2); Basophils % 0.8 % (0.0-0.8); Hemoglobin 8.4 GM/DL (14.0-18.0); Immature Granulocytes % 15.5 %; Immature Granulocytes Absolute 2.54 #; Lymphocytes # 0.3 10*3/uL (1.4-4.0); Mean Corpuscular HGB Conc 32.3 GM/DL (32-36); Mean Corpuscular Volume 92.2 FL (87-102); Mean Platelet Volume 10.6 FL (9.6-12.0); Monocytes % 7.6 % (1.7-12.7); NRBC # 0.18 10*3/uL; Neutrophils % 74.1 % (38.7-73.9); Platelet Count 194 T/CUMM (130-400); Red Blood Count 2.82 MC/CUMM (3.8-5.5); Red Cell Distribution Width 16.8 % (9.3-17.3); White Blood Count 16.3 T/CUMM (4-12)
[2019-05-17 06:10] LABS: Calcium 7.6 MG/DL (8.5-10.1); Osmolality,Calculated 295.6 MOS/KG (273-304)
[2019-05-17 06:18] LABS: Band Neutrophils 8 % (0-10); Hypochromasia 1+; Lymphocytes 15 % (20-55); Microcytosis Slight; Myelocytes 3 %; Nucleated Red Blood Cells 1 (0-5); Platelet Estimate Adequate; Segmented Neutrophils 70 % (50-85); Total Cells Counted 100
[2019-05-17] MEDS: POTASSIUM CHLORIDE RIDER 10 MEQ in PREMIX 1 EACH IV PRN ×6 (06:38→16:35)
[2019-05-17] MEDS: MAGNESIUM SULF RIDER 2 GM in PREMIX 1 EACH IV PRN (06:39)
[2019-05-17] MEDS: MONTELUKAST 10 MG TABLET PO SCH ×2 (08:51→20:03)
[2019-05-17] MEDS: ATORVASTATIN 20 MG TABLET PO SCH (08:51)
[2019-05-17] MEDS: EZETIMIBE 10 MG TABLET PO SCH (08:51)
[2019-05-17] MEDS: CITALOPRAM 20 MG TABLET PO SCH (08:51)
[2019-05-17] MEDS: FAMOTIDINE 20 MG/2 ML VIAL IV SCH ×2 (08:52→20:03)
[2019-05-17] MEDS: ASPIRIN CHEW 81 MG TABLET PO SCH (08:52)
[2019-05-17] MEDS: ENOXAPARIN 40 MG/0.4 ML SYRINGE SUBCUT SCH (08:52)
[2019-05-17] MEDS: SODIUM CHLORIDE 0.45% 1,000 ML IV SCH ×3 (09:25→20:04)
[2019-05-17] MEDS: VANCOMYCIN INJ 1,500 MG in SODIUM CHLORIDE 0.9% 500 ML IV SCH ×2 (09:40→20:06)
[2019-05-17] MEDS ORDERED: POTASSIUM PHOSPHATE 30 MMOL in SODIUM CHLORIDE 0.9% 250 ML IV ONE (10:00)
[2019-05-17] MEDS: ALBUTEROL 0.4 MG/ML 30 ML/BOTTLE PER TUBE SCH ×3 (12:20→20:04)
[2019-05-17] MEDS: METOPROLOL TARTRATE 25 MG TABLET PO SCH ×2 (12:24→20:03)
[2019-05-18] MEDS: INSULIN REGULAR 100 UNIT/ML SUBCUT SCH ×5 (00:20→23:35)
[2019-05-18] MEDS: MORPHINE 4 MG/1 ML VIAL IV PRN (00:21)
[2019-05-18] MEDS: PROPOFOL 1,000 MG/100 ML BOTTLE IV SCH ×5 (02:17→22:08)
[2019-05-18] MEDS: THEOPHYLLINE 5.33 MG/ML 30 ML/BOTTLE PER TUBE SCH ×4 (02:58→20:22)
[2019-05-18] MEDS: PIPERACILLIN/TAZOBACTAM 3,375 MG in SODIUM CHLORIDE 0.9% 100 ML IV SCH ×3 (02:58→20:17)
[2019-05-18 03:41] LABS: ABG Base Excess 0.3 MMOL/L (-2.5-2.5); ABG HCO3 24.7 MMOL/L (20-26); ABG Oxygen Saturation 98.8 % (95-100); ABG PCO2 32.9 MM HG (35-48); ABG PH 7.465 (7.35-7.45); ABG TCO2 21.8 MMOL/L (23-27); Allen Test Positive; Pt O2 Delivery Device Ventilator
[2019-05-18] MEDS: methylPREDNISolone SOD SUC 40 MG/1 ML VIAL IV SCH ×3 (04:24→20:17)
[2019-05-18] MEDS: SODIUM CHLORIDE 0.45% 1,000 ML IV SCH ×2 (05:20→18:02)
[2019-05-18 05:33] LABS: Basophils % 0.1 % (0.0-0.8); Hematocrit 26.7 VOL% (42.0-52.0); Hemoglobin 8.4 GM/DL (14.0-18.0); Immature Granulocytes % 26.7 %; Immature Granulocytes Absolute 3.61 #; Lymphocytes # 0.4 10*3/uL (1.4-4.0); Lymphocytes % 3.3 % (21.2-54.2); Mean Corpuscular HGB Conc 31.5 GM/DL (32-36); Mean Corpuscular Volume 93.7 FL (87-102); Mean Platelet Volume 10.3 FL (9.6-12.0); Monocytes % 7.6 % (1.7-12.7); NRBC # 0.33 10*3/uL; Neutrophils % 62.3 % (38.7-73.9); Platelet Count 172 T/CUMM (130-400); Red Blood Count 2.85 MC/CUMM (3.8-5.5); Red Cell Distribution Width 16.9 % (9.3-17.3); White Blood Count 13.5 T/CUMM (4-12)
[2019-05-18 06:06] LABS: Calcium 7.5 MG/DL (8.5-10.1); Osmolality,Calculated 292.7 MOS/KG (273-304)
[2019-05-18 06:08] LABS: Anisocytosis 1+; Lymphocytes 10 % (20-55); Metamyelocytes 3 %; Nucleated Red Blood Cells 2 (0-5); Segmented Neutrophils 87 % (50-85); Total Cells Counted 100
[2019-05-18 06:09] LABS: Platelet Estimate Adequate
[2019-05-18] MEDS: MAGNESIUM SULF RIDER 2 GM in PREMIX 1 EACH IV PRN (06:57)
[2019-05-18] MEDS: POTASSIUM CHLORIDE RIDER 10 MEQ in PREMIX 1 EACH IV PRN (06:57)
[2019-05-18] MEDS: ENOXAPARIN 40 MG/0.4 ML SYRINGE SUBCUT SCH (09:15)
[2019-05-18] MEDS: ASPIRIN CHEW 81 MG TABLET PO SCH (09:16)
[2019-05-18] MEDS: MONTELUKAST 10 MG TABLET PO SCH ×2 (09:16→20:17)
[2019-05-18] MEDS: METOPROLOL TARTRATE 25 MG TABLET PO SCH ×2 (09:16→20:17)
[2019-05-18] MEDS: ATORVASTATIN 20 MG TABLET PO SCH (09:16)
[2019-05-18] MEDS: CITALOPRAM 20 MG TABLET PO SCH (09:16)
[2019-05-18] MEDS: EZETIMIBE 10 MG TABLET PO SCH (09:16)
[2019-05-18] MEDS: ALBUTEROL 0.4 MG/ML 30 ML/BOTTLE PER TUBE SCH ×3 (09:19→20:22)
[2019-05-18] MEDS: FAMOTIDINE 20 MG/2 ML VIAL IV SCH ×2 (09:28→21:38)
[2019-05-18] MEDS: LOSARTAN 25 MG TABLET PO SCH (11:40)
[2019-05-18] MEDS: VANCOMYCIN INJ 1,250 MG in SODIUM CHLORIDE 0.9% 250 ML IV SCH ×2 (11:45→23:37)
[2019-05-18] MEDS: VANCOMYCIN INJ 1,500 MG in SODIUM CHLORIDE 0.9% 500 ML IV SCH (11:51)
[2019-05-18] MEDS: LORazepam 2 MG/1 ML VIAL IV PRN (18:11)
[2019-05-19] MEDS: PROPOFOL 1,000 MG/100 ML BOTTLE IV SCH ×7 (00:58→19:56)
[2019-05-19] MEDS: methylPREDNISolone SOD SUC 40 MG/1 ML VIAL IV SCH ×3 (03:11→20:19)
[2019-05-19] MEDS: THEOPHYLLINE 5.33 MG/ML 30 ML/BOTTLE PER TUBE SCH ×4 (03:11→20:17)
[2019-05-19] MEDS: PIPERACILLIN/TAZOBACTAM 3,375 MG in SODIUM CHLORIDE 0.9% 100 ML IV SCH ×3 (03:13→20:20)
[2019-05-19] MEDS: LORazepam 2 MG/1 ML VIAL IV PRN (03:41)
[2019-05-19] MEDS: SODIUM CHLORIDE 0.45% 1,000 ML IV SCH ×3 (03:45→15:04)
[2019-05-19 04:13] LABS: ABG Base Excess 3.2 MMOL/L (-2.5-2.5); ABG HCO3 26.2 MMOL/L (20-26); ABG Oxygen Saturation 97.1 % (95-100); ABG PCO2 33.5 MM HG (35-48); ABG PH 7.511 (7.35-7.45); ABG PO2 104.1 MM HG (80-95); ABG TCO2 27.2 MMOL/L (23-27); Allen Test Positive; Pt O2 Delivery Device Ventilator
[2019-05-19] MEDS: POTASSIUM CHLORIDE RIDER 10 MEQ in PREMIX 1 EACH IV PRN ×2 (05:36→06:32)
[2019-05-19] MEDS: MAGNESIUM SULF RIDER 2 GM in PREMIX 1 EACH IV PRN (05:40)
[2019-05-19] MEDS: INSULIN REGULAR 100 UNIT/ML SUBCUT SCH ×3 (06:27→18:30)
[2019-05-19] MEDS ORDERED: MAGNESIUM CITRATE 300 ML BOTTLE PO ONE (08:34)
[2019-05-19] MEDS: METOPROLOL TARTRATE 25 MG TABLET PO SCH (09:31)
[2019-05-19] MEDS: ATORVASTATIN 20 MG TABLET PO SCH (09:31)
[2019-05-19] MEDS: ASPIRIN CHEW 81 MG TABLET PO SCH (09:31)
[2019-05-19] MEDS: CITALOPRAM 20 MG TABLET PO SCH (09:31)
[2019-05-19] MEDS: ENOXAPARIN 40 MG/0.4 ML SYRINGE SUBCUT SCH (09:31)
[2019-05-19] MEDS: LOSARTAN 25 MG TABLET PO SCH (09:31)
[2019-05-19] MEDS: FAMOTIDINE 20 MG/2 ML VIAL IV SCH ×2 (09:32→20:18)
[2019-05-19] MEDS: EZETIMIBE 10 MG TABLET PO SCH (09:32)
[2019-05-19] MEDS: ALBUTEROL 0.4 MG/ML 30 ML/BOTTLE PER TUBE SCH ×3 (09:32→22:16)
[2019-05-19] MEDS: MONTELUKAST 10 MG TABLET PO SCH ×2 (09:32→20:17)
[2019-05-19] MEDS: MIDAZOLAM 100 MG in SODIUM CHLORIDE 0.9% 80 ML IV PRN (10:02)
[2019-05-19 11:26] LABS: Apearance,Urine CLEAR (Clear); Bilirubin,Urine Negative (Negative); Blood, Urine Negative (Negative); Glucose,Urine (UA) Negative (Negative); Ketones,Urine Negative (Negative); Mucus,Urine Occasional /LPF (Occasional); Nitrite,Urine Negative (Negative); Protein,Urine 30 MG/DL; RBC,Urine 5 /HPF (0-4); Urine Color Yellow (Yellow); Urine Specific Gravity 1.019 (1.001-1.035); Urine Urobilinogen < 2.0 EU/DL (0.2-1.0); WBC,Urine 1 /HPF (0-6)
[2019-05-19] MEDS: VANCOMYCIN INJ 1,250 MG in SODIUM CHLORIDE 0.9% 250 ML IV SCH ×2 (12:39→23:11)
[2019-05-19] MEDS ORDERED: METOPROLOL TARTRATE 25 MG TABLET PO SCH (14:10)
[2019-05-19 15:24] LABS: Basophils % 0.4 % (0.0-0.8); Eosinophils % 0.1 % (0.00-10.9); Hematocrit 24.4 VOL% (42.0-52.0); Hemoglobin 7.7 GM/DL (14.0-18.0); Immature Granulocytes % 26.9 %; Immature Granulocytes Absolute 2.98 #; Lymphocytes # 0.5 10*3/uL (1.4-4.0); Lymphocytes % 4.2 % (21.2-54.2); Mean Corpuscular HGB Conc 31.6 GM/DL (32-36); Mean Corpuscular Volume 93.8 FL (87-102); Mean Platelet Volume 10.2 FL (9.6-12.0); Monocytes % 5.3 % (1.7-12.7); NRBC # 0.18 10*3/uL; Neutrophils % 63.1 % (38.7-73.9); Platelet Count 146 T/CUMM (130-400); White Blood Count 11.1 T/CUMM (4-12)
[2019-05-19 17:18] LABS: Band Neutrophils 1 % (0-10); Lymphocytes 14 % (20-55); Nucleated Red Blood Cells 1 (0-5); Segmented Neutrophils 83 % (50-85); Total Cells Counted 100
[2019-05-19 17:19] LABS: Giant Platelets Few; Tear Drop Cells Slight
[2019-05-19 17:20] LABS: Macrocytosis Slight; Microcytosis 1+; Platelet Estimate Adequate
[2019-05-19 17:21] LABS: Polychromasia Few
[2019-05-20] MEDS: SODIUM CHLORIDE 0.45% 1,000 ML IV SCH ×4 (00:10→17:38)
[2019-05-20] MEDS: INSULIN REGULAR 100 UNIT/ML SUBCUT SCH ×4 (00:45→18:19)
[2019-05-20] MEDS: PROPOFOL 1,000 MG/100 ML BOTTLE IV SCH ×3 (00:53→15:46)
[2019-05-20] MEDS: MORPHINE 4 MG/1 ML VIAL IV PRN (02:51)
[2019-05-20] MEDS: PIPERACILLIN/TAZOBACTAM 3,375 MG in SODIUM CHLORIDE 0.9% 100 ML IV SCH ×3 (02:51→18:45)
[2019-05-20] MEDS: THEOPHYLLINE 5.33 MG/ML 30 ML/BOTTLE PER TUBE SCH ×4 (02:57→20:43)
[2019-05-20 03:49] LABS: ABG Base Excess 5.8 MMOL/L (-2.5-2.5); ABG HCO3 29.7 MMOL/L (20-26); ABG Oxygen Saturation 98.9 % (95-100); ABG PCO2 40.7 MM HG (35-48); ABG PH 7.474 (7.35-7.45); ABG TCO2 26.6 MMOL/L (23-27); Pt O2 Delivery Device Ventilator
[2019-05-20 04:30] LABS: Basophils % 0.3 % (0.0-0.8); Hematocrit 25.4 VOL% (42.0-52.0); Hemoglobin 8.1 GM/DL (14.0-18.0); Immature Granulocytes % 30.4 %; Lymphocytes # 0.5 10*3/uL (1.4-4.0); Lymphocytes % 4.4 % (21.2-54.2); Mean Corpuscular HGB Conc 31.9 GM/DL (32-36); Mean Corpuscular Volume 94.1 FL (87-102); Monocytes % 3.6 % (1.7-12.7); NRBC # 0.15 10*3/uL; Neutrophils % 61.3 % (38.7-73.9); Platelet Count 151 T/CUMM (130-400); Red Cell Distribution Width 17.2 % (9.3-17.3); White Blood Count 11.2 T/CUMM (4-12)
[2019-05-20] MEDS: methylPREDNISolone SOD SUC 40 MG/1 ML VIAL IV SCH ×3 (04:48→20:43)
[2019-05-20 04:55] LABS: Calcium 7.9 MG/DL (8.5-10.1)
[2019-05-20 04:57] LABS: Band Neutrophils 7 % (0-10); Hypochromasia 1+; Lymphocytes 7 % (20-55); Metamyelocytes 1 %; Myelocytes 8 %; Nucleated Red Blood Cells 1 (0-5); Platelet Estimate Adequate; Segmented Neutrophils 71 % (50-85); Total Cells Counted 100
[2019-05-20 04:58] LABS: Microcytosis Slight
[2019-05-20 05:03] LABS: Prealbumin 20.8 MG/DL (20-40)
[2019-05-20] MEDS: MIDAZOLAM 100 MG in SODIUM CHLORIDE 0.9% 80 ML IV PRN ×3 (05:18→23:35)
[2019-05-20] MEDS: POTASSIUM CHLORIDE RIDER 10 MEQ in PREMIX 1 EACH IV PRN ×2 (05:34→06:30)
[2019-05-20] MEDS: MAGNESIUM SULF RIDER 2 GM in PREMIX 1 EACH IV PRN (05:41)
[2019-05-20] MEDS ORDERED: MAGNESIUM SULF RIDER 2 GM in PREMIX 1 EACH IV ONE (08:55)
[2019-05-20] MEDS: ENOXAPARIN 40 MG/0.4 ML SYRINGE SUBCUT SCH (10:00)
[2019-05-20] MEDS: ASPIRIN CHEW 81 MG TABLET PO SCH (10:01)
[2019-05-20] MEDS: LOSARTAN 25 MG TABLET PO SCH (10:01)
[2019-05-20] MEDS: FAMOTIDINE 20 MG/2 ML VIAL IV SCH ×2 (10:01→20:42)
[2019-05-20] MEDS: EZETIMIBE 10 MG TABLET PO SCH (10:01)
[2019-05-20] MEDS: MONTELUKAST 10 MG TABLET PO SCH ×2 (10:01→20:45)
[2019-05-20] MEDS: ATORVASTATIN 20 MG TABLET PO SCH (10:02)
[2019-05-20] MEDS: ALBUTEROL 0.4 MG/ML 30 ML/BOTTLE PER TUBE SCH ×3 (10:03→20:45)
[2019-05-20] MEDS: CITALOPRAM 20 MG TABLET PO SCH (10:07)
[2019-05-20] MEDS ORDERED: LOSARTAN 25 MG TABLET PO ONE (11:38)
[2019-05-20] MEDS: VANCOMYCIN INJ 1,250 MG in SODIUM CHLORIDE 0.9% 250 ML IV SCH ×2 (12:30→23:02)
[2019-05-20] MEDS: LORazepam 2 MG/1 ML VIAL IV PRN (18:51)
[2019-05-21] MEDS: INSULIN REGULAR 100 UNIT/ML SUBCUT SCH ×4 (00:15→18:28)
[2019-05-21] MEDS: SODIUM CHLORIDE 0.45% 1,000 ML IV SCH ×4 (00:44→13:32)
[2019-05-21] MEDS: PIPERACILLIN/TAZOBACTAM 3,375 MG in SODIUM CHLORIDE 0.9% 100 ML IV SCH ×3 (03:28→18:33)
[2019-05-21] MEDS: THEOPHYLLINE 5.33 MG/ML 30 ML/BOTTLE PER TUBE SCH ×4 (03:31→21:39)
[2019-05-21] MEDS: methylPREDNISolone SOD SUC 40 MG/1 ML VIAL IV SCH ×3 (03:35→21:38)
[2019-05-21 03:44] LABS: ABG Base Excess 7.5 MMOL/L (-2.5-2.5); ABG HCO3 30.9 MMOL/L (20-26); ABG Oxygen Saturation 97.9 % (95-100); ABG PCO2 38.7 MM HG (35-48); ABG PO2 122.3 MM HG (80-95); ABG TCO2 32.1 MMOL/L (23-27); Allen Test Positive; Pt O2 Delivery Device Ventilator
[2019-05-21] MEDS: LORazepam 2 MG/1 ML VIAL IV PRN ×2 (04:08→08:52)
[2019-05-21 05:26] LABS: Basophils % 0.3 % (0.0-0.8); Hematocrit 25.3 VOL% (42.0-52.0); Immature Granulocytes % 19.8 %; Immature Granulocytes Absolute 2.45 #; Lymphocytes # 0.8 10*3/uL (1.4-4.0); Lymphocytes % 6.6 % (21.2-54.2); Mean Corpuscular HGB Conc 31.6 GM/DL (32-36); Mean Corpuscular Volume 93.4 FL (87-102); Mean Platelet Volume 11.8 FL (9.6-12.0); Monocytes % 3.9 % (1.7-12.7); NRBC # 0.13 10*3/uL; Neutrophils % 69.4 % (38.7-73.9); Platelet Count 165 T/CUMM (130-400); Red Blood Count 2.71 MC/CUMM (3.8-5.5); Red Cell Distribution Width 17.2 % (9.3-17.3); White Blood Count 12.4 T/CUMM (4-12)
[2019-05-21 05:53] LABS: PT Patient Result 11.1 SECS; Partial Thromboplastin Time 26.7 SECS (0-40)
[2019-05-21] MEDS: MAGNESIUM SULF RIDER 2 GM in PREMIX 1 EACH IV PRN (06:00)
[2019-05-21] MEDS: POTASSIUM CHLORIDE RIDER 10 MEQ in PREMIX 1 EACH IV PRN ×3 (06:00→08:16)
[2019-05-21 06:01] LABS: Band Neutrophils 2 % (0-10); Lymphocytes 10 % (20-55); Metamyelocytes 3 %; Myelocytes 2 %; Nucleated Red Blood Cells 1 (0-5); Segmented Neutrophils 79 % (50-85); Total Cells Counted 100
[2019-05-21 06:02] LABS: Hypochromasia Slight; Microcytosis 1+
[2019-05-21 06:03] LABS: Anisocytosis 1+; Ovalocytes Slight; Platelet Estimate Adequate; Polychromasia Slight
[2019-05-21] MEDS: ATORVASTATIN 20 MG TABLET PO SCH (08:55)
[2019-05-21] MEDS: CITALOPRAM 20 MG TABLET PO SCH (08:55)
[2019-05-21] MEDS: MONTELUKAST 10 MG TABLET PO SCH ×2 (08:55→21:40)
[2019-05-21] MEDS: METOCLOPRAMIDE 10 MG/10 ML UDCUP PER TUBE SCH ×2 (08:55→16:51)
[2019-05-21] MEDS: EZETIMIBE 10 MG TABLET PO SCH (08:55)
[2019-05-21] MEDS: ASPIRIN CHEW 81 MG TABLET PO SCH (08:56)
[2019-05-21] MEDS: hydrALAZINE 20 MG/1 ML VIAL IV PRN ×2 (08:56→18:33)
[2019-05-21] MEDS: LOSARTAN 50 MG TABLET PO SCH (08:56)
[2019-05-21] MEDS: ENOXAPARIN 40 MG/0.4 ML SYRINGE SUBCUT SCH (08:57)
[2019-05-21] MEDS: FAMOTIDINE 20 MG/2 ML VIAL IV SCH ×2 (08:57→21:38)
[2019-05-21] MEDS: ALBUTEROL 0.4 MG/ML 30 ML/BOTTLE PER TUBE SCH ×3 (08:58→21:39)
[2019-05-21] MEDS: MIDAZOLAM 100 MG in SODIUM CHLORIDE 0.9% 80 ML IV PRN ×2 (09:43→18:57)
[2019-05-21] MEDS: POTASSIUM CHLORIDE 20 MEQ/15 ML UDCUP PER TUBE SCH ×3 (09:44→16:51)
[2019-05-21] MEDS ORDERED: amLODIPine 5 MG TABLET PO ONE (10:33)
[2019-05-21] MEDS: VANCOMYCIN INJ 1,250 MG in SODIUM CHLORIDE 0.9% 250 ML IV SCH (11:17)
[2019-05-21] MEDS: FLUCONAZOLE INJ 200 MG in PREMIX 1 EACH IV SCH (14:15)
[2019-05-21] MEDS: PROPOFOL 1,000 MG/100 ML BOTTLE IV SCH (16:23)
[2019-05-22] MEDS: hydrALAZINE 20 MG/1 ML VIAL IV PRN (00:15)
[2019-05-22] MEDS: VANCOMYCIN INJ 1,250 MG in SODIUM CHLORIDE 0.9% 250 ML IV SCH ×2 (00:15→11:40)
[2019-05-22] MEDS: INSULIN REGULAR 100 UNIT/ML SUBCUT SCH ×4 (02:00→18:20)
[2019-05-22] MEDS: METOCLOPRAMIDE 10 MG/10 ML UDCUP PER TUBE SCH ×3 (02:51→16:46)
[2019-05-22] MEDS: SODIUM CHLORIDE 0.45% 1,000 ML IV SCH ×3 (02:54→19:18)
[2019-05-22] MEDS: MIDAZOLAM 100 MG in SODIUM CHLORIDE 0.9% 80 ML IV PRN ×2 (04:00→15:22)
[2019-05-22] MEDS: THEOPHYLLINE 5.33 MG/ML 30 ML/BOTTLE PER TUBE SCH ×4 (04:35→20:30)
[2019-05-22 04:53] LABS: ABG Base Excess 6.9 MMOL/L (-2.5-2.5); ABG HCO3 30.7 MMOL/L (20-26); ABG Oxygen Saturation 99.1 % (95-100); ABG PCO2 41.3 MM HG (35-48); ABG PH 7.483 (7.35-7.45); ABG TCO2 28.4 MMOL/L (23-27); Allen Test Positive; Pt O2 Delivery Device Ventilator
[2019-05-22] MEDS: methylPREDNISolone SOD SUC 40 MG/1 ML VIAL IV SCH ×3 (05:08→20:36)
[2019-05-22] MEDS: PIPERACILLIN/TAZOBACTAM 3,375 MG in SODIUM CHLORIDE 0.9% 100 ML IV SCH ×3 (05:08→20:35)
[2019-05-22 06:05] LABS: Basophils % 0.3 % (0.0-0.8); Hematocrit 26.1 VOL% (42.0-52.0); Hemoglobin 8.2 GM/DL (14.0-18.0); Immature Granulocytes % 11.6 %; Immature Granulocytes Absolute 1.48 #; Lymphocytes # 0.9 10*3/uL (1.4-4.0); Mean Corpuscular HGB Conc 31.4 GM/DL (32-36); Mean Corpuscular Volume 94.2 FL (87-102); Monocytes % 3.2 % (1.7-12.7); NRBC # 0.08 10*3/uL; Neutrophils % 77.9 % (38.7-73.9); Platelet Count 169 T/CUMM (130-400); Red Blood Count 2.77 MC/CUMM (3.8-5.5); Red Cell Distribution Width 17.9 % (9.3-17.3); White Blood Count 12.8 T/CUMM (4-12)
[2019-05-22 06:24] LABS: Osmolality,Calculated 290.1 MOS/KG (273-304)
[2019-05-22 06:25] LABS: Band Neutrophils 5 % (0-10); Hypochromasia 1+; Lymphocytes 10 % (20-55); Macrocytosis Slight; Nucleated Red Blood Cells 1 (0-5); Platelet Estimate Adequate; Polychromasia Slight; Segmented Neutrophils 80 % (50-85); Total Cells Counted 100
[2019-05-22] MEDS: POTASSIUM CHLORIDE RIDER 10 MEQ in PREMIX 1 EACH IV PRN (07:05)
[2019-05-22] MEDS: amLODIPine 5 MG TABLET PO SCH (08:46)
[2019-05-22] MEDS: ASPIRIN CHEW 81 MG TABLET PO SCH (08:46)
[2019-05-22] MEDS: LOSARTAN 50 MG TABLET PO SCH (08:46)
[2019-05-22] MEDS: ATORVASTATIN 20 MG TABLET PO SCH (08:46)
[2019-05-22] MEDS: MONTELUKAST 10 MG TABLET PO SCH ×2 (08:46→20:30)
[2019-05-22] MEDS: EZETIMIBE 10 MG TABLET PO SCH (08:46)
[2019-05-22] MEDS: CITALOPRAM 20 MG TABLET PO SCH (08:46)
[2019-05-22] MEDS: ENOXAPARIN 40 MG/0.4 ML SYRINGE SUBCUT SCH (08:48)
[2019-05-22] MEDS: ALBUTEROL 0.4 MG/ML 30 ML/BOTTLE PER TUBE SCH ×3 (08:48→20:30)
[2019-05-22] MEDS: FAMOTIDINE 20 MG/2 ML VIAL IV SCH ×2 (08:59→20:36)
[2019-05-22] MEDS: DORNASE ALFA 2.5 MG/2.5 ML VIAL RESP TX SCH ×2 (11:22→19:12)
[2019-05-22] MEDS ORDERED: LOSARTAN 25 MG TABLET PO ONE (12:53)
[2019-05-22] MEDS: FLUCONAZOLE INJ 200 MG in PREMIX 1 EACH IV SCH (13:38)
[2019-05-22] MEDS: PROPOFOL 1,000 MG/100 ML BOTTLE IV SCH (16:39)
[2019-05-23] MEDS: INSULIN REGULAR 100 UNIT/ML SUBCUT SCH ×4 (00:01→18:28)
[2019-05-23] MEDS: METOCLOPRAMIDE 10 MG/10 ML UDCUP PER TUBE SCH ×3 (00:02→16:04)
[2019-05-23] MEDS: MIDAZOLAM 100 MG in SODIUM CHLORIDE 0.9% 80 ML IV PRN (00:32)
[2019-05-23] MEDS: VANCOMYCIN INJ 1,250 MG in SODIUM CHLORIDE 0.9% 250 ML IV SCH ×3 (00:34→23:00)
[2019-05-23] MEDS: hydrALAZINE 20 MG/1 ML VIAL IV PRN ×2 (01:07→13:48)
[2019-05-23] MEDS: SODIUM CHLORIDE 0.45% 1,000 ML IV SCH ×5 (02:13→22:34)
[2019-05-23] MEDS: PIPERACILLIN/TAZOBACTAM 3,375 MG in SODIUM CHLORIDE 0.9% 100 ML IV SCH ×3 (04:00→20:00)
[2019-05-23] MEDS: THEOPHYLLINE 5.33 MG/ML 30 ML/BOTTLE PER TUBE SCH ×4 (04:34→20:51)
[2019-05-23] MEDS: methylPREDNISolone SOD SUC 40 MG/1 ML VIAL IV SCH ×3 (04:35→20:51)
[2019-05-23 05:15] LABS: ABG Base Excess 6.6 MMOL/L (-2.5-2.5); ABG HCO3 30.4 MMOL/L (20-26); ABG Oxygen Saturation 97.7 % (95-100); ABG PCO2 40.1 MM HG (35-48); ABG PH 7.497 (7.35-7.45); ABG PO2 148.6 MM HG (80-95); ABG TCO2 31.6 MMOL/L (23-27); Allen Test Positive; Pt O2 Delivery Device Ventilator
[2019-05-23 06:15] LABS: Basophils % 0.2 % (0.0-0.8); Hemoglobin 8.5 GM/DL (14.0-18.0); Immature Granulocytes % 8.2 %; Immature Granulocytes Absolute 1.36 #; Lymphocytes # 0.8 10*3/uL (1.4-4.0); Lymphocytes % 4.8 % (21.2-54.2); Mean Corpuscular HGB Conc 31.5 GM/DL (32-36); Mean Corpuscular Volume 94.4 FL (87-102); Mean Platelet Volume 10.9 FL (9.6-12.0); Monocytes % 2.6 % (1.7-12.7); Neutrophils % 84.2 % (38.7-73.9); Platelet Count 204 T/CUMM (130-400); Red Blood Count 2.86 MC/CUMM (3.8-5.5); Red Cell Distribution Width 18.2 % (9.3-17.3); White Blood Count 16.6 T/CUMM (4-12)
[2019-05-23 06:23] LABS: INR 1.1; PT Patient Result 11.4 SECS; Partial Thromboplastin Time 22.8 SECS (0-40)
[2019-05-23 06:35] LABS: Band Neutrophils 4 % (0-10); Lymphocytes 6 % (20-55); Platelet Estimate Adequate; Segmented Neutrophils 86 % (50-85); Total Cells Counted 100
[2019-05-23 06:36] LABS: Albumin 1.8 G/DL (3.4-5.0); Bilirubin,Total 1.7 MG/DL (0.2-1.0); Calcium 8.3 MG/DL (8.5-10.1); Hypochromasia 1+; Microcytosis Slight; Osmolality,Calculated 289.1 MOS/KG (273-304); Total Protein 5.2 G/DL (6.4-8.3)
[2019-05-23 06:40] LABS: Calcium 8.3 MG/DL (8.5-10.1); Osmolality,Calculated 289.1 MOS/KG (273-304); Prealbumin 25.1 MG/DL (20-40)
[2019-05-23] MEDS: POTASSIUM CHLORIDE RIDER 10 MEQ in PREMIX 1 EACH IV PRN ×2 (07:00→09:16)
[2019-05-23 07:09] LABS: ABG Base Excess 7.4 MMOL/L (-2.5-2.5); ABG HCO3 31.4 MMOL/L (20-26); ABG PCO2 42.3 MM HG (35-48); ABG PH 7.489 (7.35-7.45); ABG PO2 103.6 MM HG (80-95); ABG TCO2 32.7 MMOL/L (23-27); Allen Test Positive
[2019-05-23] MEDS: DORNASE ALFA 2.5 MG/2.5 ML VIAL RESP TX SCH ×2 (07:25→19:51)
[2019-05-23] MEDS: CITALOPRAM 20 MG TABLET PO SCH (09:08)
[2019-05-23] MEDS: ATORVASTATIN 20 MG TABLET PO SCH (09:08)
[2019-05-23] MEDS: LOSARTAN 25 MG TABLET PO SCH (09:09)
[2019-05-23] MEDS: ASPIRIN CHEW 81 MG TABLET PO SCH (09:09)
[2019-05-23] MEDS: amLODIPine 5 MG TABLET PO SCH (09:09)
[2019-05-23] MEDS: ENOXAPARIN 40 MG/0.4 ML SYRINGE SUBCUT SCH (09:10)
[2019-05-23] MEDS: FAMOTIDINE 20 MG/2 ML VIAL IV SCH ×2 (09:11→20:51)
[2019-05-23] MEDS: MONTELUKAST 10 MG TABLET PO SCH ×2 (09:17→20:51)
[2019-05-23] MEDS: EZETIMIBE 10 MG TABLET PO SCH (09:17)
[2019-05-23] MEDS: MAGNESIUM SULF RIDER 2 GM in PREMIX 1 EACH IV PRN (11:29)
[2019-05-23 11:49] LABS: ABG Base Excess 7.3 MMOL/L (-2.5-2.5); ABG HCO3 31.1 MMOL/L (20-26); ABG Oxygen Saturation 97.9 % (95-100); ABG PCO2 39.4 MM HG (35-48); ABG PH 7.504 (7.35-7.45); ABG PO2 90.5 MM HG (80-95); ABG TCO2 28.5 MMOL/L (23-27); Allen Test Positive; Pt O2 Delivery Device Other
[2019-05-23] MEDS: ALBUTEROL 0.4 MG/ML 30 ML/BOTTLE PER TUBE SCH ×3 (13:29→20:51)
[2019-05-23] MEDS: FLUCONAZOLE INJ 200 MG in PREMIX 1 EACH IV SCH (14:33)
[2019-05-23] MEDS: ALBUTEROL/IPRATROPIUM 3 ML NEB RESP TX SCH ×3 (14:43→23:34)
[2019-05-23] MEDS: METOPROLOL TARTRATE 50 MG TABLET PO SCH ×2 (16:04→20:51)
[2019-05-23] MEDS: LORazepam 2 MG/1 ML VIAL IV PRN (22:15)
[2019-05-24] MEDS: INSULIN REGULAR 100 UNIT/ML SUBCUT SCH ×4 (00:24→18:40)
[2019-05-24] MEDS: METOCLOPRAMIDE 10 MG/10 ML UDCUP PER TUBE SCH ×2 (01:17→08:06)
[2019-05-24] MEDS: METOPROLOL TARTRATE 50 MG TABLET PO SCH ×4 (01:17→20:55)
[2019-05-24] MEDS: ALBUTEROL/IPRATROPIUM 3 ML NEB RESP TX SCH ×6 (03:24→22:41)
[2019-05-24] MEDS: THEOPHYLLINE 5.33 MG/ML 30 ML/BOTTLE PER TUBE SCH ×4 (04:09→22:35)
[2019-05-24] MEDS: PIPERACILLIN/TAZOBACTAM 3,375 MG in SODIUM CHLORIDE 0.9% 100 ML IV SCH ×3 (04:09→20:55)
[2019-05-24] MEDS: methylPREDNISolone SOD SUC 40 MG/1 ML VIAL IV SCH ×2 (04:10→15:10)
[2019-05-24 05:17] LABS: Bilirubin,Total 1.1 MG/DL (0.2-1.0); Calcium 8.2 MG/DL (8.5-10.1); Total Protein 5.1 G/DL (6.4-8.3)
[2019-05-24 05:28] LABS: ABG Base Excess 6.1 MMOL/L (-2.5-2.5); ABG HCO3 29.9 MMOL/L (20-26); ABG Oxygen Saturation 95.3 % (95-100); ABG PCO2 39.4 MM HG (35-48); ABG PH 7.488 (7.35-7.45); ABG PO2 71.1 MM HG (80-95); ABG TCO2 27.5 MMOL/L (23-27); Allen Test Positive; Pt O2 Delivery Device Other
[2019-05-24] MEDS: MAGNESIUM SULF RIDER 2 GM in PREMIX 1 EACH IV PRN (05:39)
[2019-05-24 07:11] LABS: Basophils % 0.2 % (0.0-0.8); Immature Granulocytes % 6.5 %; Immature Granulocytes Absolute 1.12 #; Lymphocytes # 0.7 10*3/uL (1.4-4.0); Lymphocytes % 4.1 % (21.2-54.2); Mean Corpuscular HGB Conc 30.8 GM/DL (32-36); Mean Corpuscular Volume 97.7 FL (87-102); Mean Platelet Volume 11.2 FL (9.6-12.0); Monocytes % 3.5 % (1.7-12.7); NRBC # 0.07 10*3/uL; Neutrophils % 85.7 % (38.7-73.9); Platelet Count 218 T/CUMM (130-400); Red Blood Count 2.66 MC/CUMM (3.8-5.5); Red Cell Distribution Width 19.1 % (9.3-17.3); White Blood Count 17.2 T/CUMM (4-12)
[2019-05-24 07:13] LABS: Band Neutrophils 3 % (0-10); Hypochromasia 1+; Lymphocytes 7 % (20-55); Ovalocytes Slight; Platelet Estimate Adequate; Segmented Neutrophils 87 % (50-85); Total Cells Counted 100
[2019-05-24 07:14] LABS: Microcytosis Slight
[2019-05-24] MEDS: DORNASE ALFA 2.5 MG/2.5 ML VIAL RESP TX SCH ×2 (07:47→19:02)
[2019-05-24] MEDS: FAMOTIDINE 20 MG/2 ML VIAL IV SCH (08:04)
[2019-05-24] MEDS: ASPIRIN CHEW 81 MG TABLET PO SCH (08:04)
[2019-05-24] MEDS: CITALOPRAM 20 MG TABLET PO SCH (08:04)
[2019-05-24] MEDS: ENOXAPARIN 40 MG/0.4 ML SYRINGE SUBCUT SCH (08:04)
[2019-05-24] MEDS: MONTELUKAST 10 MG TABLET PO SCH ×2 (08:04→20:55)
[2019-05-24] MEDS: EZETIMIBE 10 MG TABLET PO SCH (08:04)
[2019-05-24] MEDS: ATORVASTATIN 20 MG TABLET PO SCH (08:04)
[2019-05-24] MEDS: ALBUTEROL 0.4 MG/ML 30 ML/BOTTLE PER TUBE SCH ×3 (08:05→20:55)
[2019-05-24] MEDS: amLODIPine 5 MG TABLET PO SCH (08:05)
[2019-05-24] MEDS: LOSARTAN 25 MG TABLET PO SCH (08:05)
[2019-05-24] MEDS: RANITIDINE 150 MG/10 ML 30 ML BOTTLE PER TUBE SCH ×2 (12:14→20:55)
[2019-05-24] MEDS: VANCOMYCIN INJ 1,250 MG in SODIUM CHLORIDE 0.9% 250 ML IV SCH (12:15)
[2019-05-24] MEDS: FLUCONAZOLE INJ 200 MG in PREMIX 1 EACH IV SCH (14:08)
[2019-05-24] MEDS: POTASSIUM CHLORIDE 20 MEQ/15 ML UDCUP PER TUBE SCH ×5 (15:00→22:35)
[2019-05-24] MEDS: ACETAMINOPHEN 325 MG TABLET PO PRN (15:10)
[2019-05-24] MEDS: SODIUM CHLORIDE 0.45% 1,000 ML IV SCH (16:14)
[2019-05-24] MEDS: LORazepam 2 MG/1 ML VIAL IV PRN (19:40)
[2019-05-25] MEDS: VANCOMYCIN INJ 1,250 MG in SODIUM CHLORIDE 0.9% 250 ML IV SCH ×2 (00:17→10:11)
[2019-05-25] MEDS: INSULIN REGULAR 100 UNIT/ML SUBCUT SCH ×4 (00:17→18:31)
[2019-05-25] MEDS: METOPROLOL TARTRATE 50 MG TABLET PO SCH ×4 (01:39→20:51)
[2019-05-25] MEDS: ALBUTEROL/IPRATROPIUM 3 ML NEB RESP TX SCH ×6 (02:15→23:13)
[2019-05-25] MEDS: PIPERACILLIN/TAZOBACTAM 3,375 MG in SODIUM CHLORIDE 0.9% 100 ML IV SCH ×3 (03:15→18:31)
[2019-05-25] MEDS: THEOPHYLLINE 5.33 MG/ML 30 ML/BOTTLE PER TUBE SCH ×4 (03:15→20:52)
[2019-05-25] MEDS: methylPREDNISolone SOD SUC 40 MG/1 ML VIAL IV SCH ×2 (03:15→15:30)
[2019-05-25 04:15] LABS: ABG Base Excess 7.4 MMOL/L (-2.5-2.5); ABG HCO3 31.1 MMOL/L (20-26); ABG Oxygen Saturation 91.9 % (95-100); ABG PCO2 42.2 MM HG (35-48); ABG PH 7.482 (7.35-7.45); ABG PO2 59.6 MM HG (80-95); ABG TCO2 29.4 MMOL/L (23-27); Allen Test Positive; Pt O2 Delivery Device Other
[2019-05-25 05:09] LABS: Basophils % 0.3 % (0.0-0.8); Hematocrit 24.4 VOL% (42.0-52.0); Hemoglobin 7.4 GM/DL (14.0-18.0); Immature Granulocytes % 5.2 %; Immature Granulocytes Absolute 0.77 #; Lymphocytes # 0.5 10*3/uL (1.4-4.0); Lymphocytes % 3.4 % (21.2-54.2); Mean Corpuscular HGB Conc 30.3 GM/DL (32-36); Mean Corpuscular Volume 98.4 FL (87-102); Monocytes % 5.2 % (1.7-12.7); NRBC # 0.12 10*3/uL; Neutrophils % 85.9 % (38.7-73.9); Platelet Count 204 T/CUMM (130-400); Red Blood Count 2.48 MC/CUMM (3.8-5.5); Red Cell Distribution Width 19.8 % (9.3-17.3)
[2019-05-25 05:42] LABS: Osmolality,Calculated 289.1 MOS/KG (273-304)
[2019-05-25 05:48] LABS: Lymphocytes 4 % (20-55); Nucleated Red Blood Cells 2 (0-5); Segmented Neutrophils 91 % (50-85); Total Cells Counted 100
[2019-05-25 05:49] LABS: Anisocytosis 1+; Hypochromasia 1+; Microcytosis 1+
[2019-05-25 05:50] LABS: Platelet Estimate Normal; Tear Drop Cells Slight
[2019-05-25] MEDS: POTASSIUM CHLORIDE RIDER 10 MEQ in PREMIX 1 EACH IV PRN (07:04)
[2019-05-25] MEDS: DORNASE ALFA 2.5 MG/2.5 ML VIAL RESP TX SCH ×2 (08:04→19:45)
[2019-05-25] MEDS ORDERED: LORazepam 2 MG/1 ML VIAL ONE ×2 (09:34→13:46)
[2019-05-25] MEDS: ENOXAPARIN 40 MG/0.4 ML SYRINGE SUBCUT SCH (09:49)
[2019-05-25] MEDS: LOSARTAN 25 MG TABLET PO SCH (09:49)
[2019-05-25] MEDS: EZETIMIBE 10 MG TABLET PO SCH (09:50)
[2019-05-25] MEDS: amLODIPine 5 MG TABLET PO SCH (09:50)
[2019-05-25] MEDS: CITALOPRAM 20 MG TABLET PO SCH (09:50)
[2019-05-25] MEDS: ASPIRIN CHEW 81 MG TABLET PO SCH (09:50)
[2019-05-25] MEDS: MONTELUKAST 10 MG TABLET PO SCH ×2 (09:50→20:52)
[2019-05-25] MEDS: ATORVASTATIN 20 MG TABLET PO SCH (09:50)
[2019-05-25] MEDS: ALBUTEROL 0.4 MG/ML 30 ML/BOTTLE PER TUBE SCH ×3 (09:52→20:52)
[2019-05-25] MEDS: LORazepam 2 MG/1 ML VIAL IV PRN ×4 (09:52→15:30)
[2019-05-25] MEDS: RANITIDINE 150 MG/10 ML 30 ML BOTTLE PER TUBE SCH ×2 (09:52→20:52)
[2019-05-25] MEDS: hydrALAZINE 20 MG/1 ML VIAL IV PRN (10:04)
[2019-05-25] MEDS: ACETAMINOPHEN 325 MG TABLET PO PRN (10:20)
[2019-05-25] MEDS: QUEtiapine 25 MG TABLET PO SCH ×2 (10:20→20:52)
[2019-05-25] MEDS ORDERED: LORazepam 2 MG/1 ML VIAL IV ONE (10:30)
[2019-05-25] MEDS: SODIUM CHLORIDE 0.9% 1,000 ML IV SCH (12:00)
[2019-05-25] MEDS: FLUCONAZOLE INJ 200 MG in PREMIX 1 EACH IV SCH (13:40)
[2019-05-26] MEDS: VANCOMYCIN INJ 1,250 MG in SODIUM CHLORIDE 0.9% 250 ML IV SCH ×3 (00:05→23:53)
[2019-05-26] MEDS: INSULIN REGULAR 100 UNIT/ML SUBCUT SCH ×5 (00:05→23:53)
[2019-05-26] MEDS: LORazepam 2 MG/1 ML VIAL IV PRN ×2 (02:16→09:40)
[2019-05-26] MEDS: THEOPHYLLINE 5.33 MG/ML 30 ML/BOTTLE PER TUBE SCH ×4 (02:16→21:04)
[2019-05-26] MEDS: METOPROLOL TARTRATE 50 MG TABLET PO SCH ×4 (02:16→21:04)
[2019-05-26 03:13] LABS: ABG Base Excess 10.2 MMOL/L (-2.5-2.5); ABG PCO2 50.1 MM HG (35-48); ABG PH 7.456 (7.35-7.45); ABG TCO2 33.4 MMOL/L (23-27); Allen Test Positive
[2019-05-26] MEDS: PIPERACILLIN/TAZOBACTAM 3,375 MG in SODIUM CHLORIDE 0.9% 100 ML IV SCH ×3 (03:20→21:04)
[2019-05-26] MEDS: ALBUTEROL/IPRATROPIUM 3 ML NEB RESP TX SCH ×6 (03:20→23:57)
[2019-05-26] MEDS: methylPREDNISolone SOD SUC 40 MG/1 ML VIAL IV SCH ×2 (03:20→16:00)
[2019-05-26 04:53] LABS: Basophils % 0.1 % (0.0-0.8); Hematocrit 24.9 VOL% (42.0-52.0); Hemoglobin 7.4 GM/DL (14.0-18.0); Immature Granulocytes % 2.2 %; Immature Granulocytes Absolute 0.34 #; Lymphocytes # 0.5 10*3/uL (1.4-4.0); Lymphocytes % 3.3 % (21.2-54.2); Mean Corpuscular HGB Conc 29.7 GM/DL (32-36); Mean Corpuscular Volume 99.6 FL (87-102); Mean Platelet Volume 10.9 FL (9.6-12.0); Monocytes % 4.1 % (1.7-12.7); NRBC # 0.06 10*3/uL; Neutrophils % 90.3 % (38.7-73.9); Platelet Count 213 T/CUMM (130-400); Red Cell Distribution Width 20.2 % (9.3-17.3); White Blood Count 15.5 T/CUMM (4-12)
[2019-05-26 05:16] LABS: Calcium 8.2 MG/DL (8.5-10.1); Osmolality,Calculated 298.4 MOS/KG (273-304)
[2019-05-26 05:40] LABS: Band Neutrophils 3 % (0-10); Lymphocytes 3 % (20-55); Nucleated Red Blood Cells 1 (0-5); Platelet Estimate Normal; Segmented Neutrophils 91 % (50-85); Total Cells Counted 100
[2019-05-26] MEDS: DORNASE ALFA 2.5 MG/2.5 ML VIAL RESP TX SCH ×2 (08:23→19:43)
[2019-05-26] MEDS: hydrALAZINE 20 MG/1 ML VIAL IV PRN (09:10)
[2019-05-26] MEDS ORDERED: LORazepam 2 MG/1 ML VIAL ONE (09:37)
[2019-05-26] MEDS ORDERED: LORazepam 2 MG/1 ML VIAL IV PRN (10:29)
[2019-05-26] MEDS: CITALOPRAM 20 MG TABLET PO SCH (11:22)
[2019-05-26] MEDS: LOSARTAN 25 MG TABLET PO SCH (11:23)
[2019-05-26] MEDS: EZETIMIBE 10 MG TABLET PO SCH (11:23)
[2019-05-26] MEDS: QUEtiapine 25 MG TABLET PO SCH ×2 (11:23→21:05)
[2019-05-26] MEDS: ASPIRIN CHEW 81 MG TABLET PO SCH (11:23)
[2019-05-26] MEDS: MONTELUKAST 10 MG TABLET PO SCH ×2 (11:23→21:05)
[2019-05-26] MEDS: ATORVASTATIN 20 MG TABLET PO SCH (11:23)
[2019-05-26] MEDS: amLODIPine 5 MG TABLET PO SCH (11:24)
[2019-05-26] MEDS: ENOXAPARIN 40 MG/0.4 ML SYRINGE SUBCUT SCH (11:25)
[2019-05-26] MEDS: ALBUTEROL 0.4 MG/ML 30 ML/BOTTLE PER TUBE SCH ×3 (11:26→21:05)
[2019-05-26] MEDS: RANITIDINE 150 MG/10 ML 30 ML BOTTLE PER TUBE SCH ×2 (11:26→21:05)
[2019-05-26] MEDS: SODIUM CHLORIDE 0.9% 1,000 ML IV SCH (11:30)
[2019-05-26] MEDS ORDERED: MORPHINE 4 MG/1 ML VIAL ONE (11:43)
[2019-05-26] MEDS: MORPHINE 4 MG/1 ML VIAL IV PRN (11:45)
[2019-05-26] MEDS: FLUCONAZOLE INJ 200 MG in PREMIX 1 EACH IV SCH (15:30)
[2019-05-27] MEDS: METOPROLOL TARTRATE 50 MG TABLET PO SCH ×4 (01:30→20:05)
[2019-05-27] MEDS: LORazepam 2 MG/1 ML VIAL IV PRN ×3 (02:43→18:25)
[2019-05-27 03:36] LABS: ABG Base Excess 8.7 MMOL/L (-2.5-2.5); ABG HCO3 32.5 MMOL/L (20-26); ABG PH 7.391 (7.35-7.45); ABG TCO2 32.7 MMOL/L (23-27); Allen Test Positive
[2019-05-27] MEDS: ALBUTEROL/IPRATROPIUM 3 ML NEB RESP TX SCH ×5 (03:45→20:23)
[2019-05-27] MEDS: THEOPHYLLINE 5.33 MG/ML 30 ML/BOTTLE PER TUBE SCH ×4 (04:14→21:50)
[2019-05-27] MEDS: methylPREDNISolone SOD SUC 40 MG/1 ML VIAL IV SCH ×2 (04:47→16:41)
[2019-05-27] MEDS: MORPHINE 4 MG/1 ML VIAL IV PRN (04:47)
[2019-05-27] MEDS: PIPERACILLIN/TAZOBACTAM 3,375 MG in SODIUM CHLORIDE 0.9% 100 ML IV SCH (04:47)
[2019-05-27 04:54] LABS: Basophils % 0.1 % (0.0-0.8); Hematocrit 22.2 VOL% (42.0-52.0); Hemoglobin 6.6 GM/DL (14.0-18.0); Immature Granulocytes % 1.2 %; Immature Granulocytes Absolute 0.14 #; Lymphocytes # 0.5 10*3/uL (1.4-4.0); Lymphocytes % 4.2 % (21.2-54.2); Mean Corpuscular HGB Conc 29.7 GM/DL (32-36); Mean Corpuscular Volume 101.4 FL (87-102); Monocytes % 3.9 % (1.7-12.7); NRBC # 0.03 10*3/uL; Neutrophils % 90.6 % (38.7-73.9); Platelet Count 172 T/CUMM (130-400); Red Blood Count 2.19 MC/CUMM (3.8-5.5); Red Cell Distribution Width 19.9 % (9.3-17.3); White Blood Count 11.3 T/CUMM (4-12)
[2019-05-27 05:16] LABS: Calcium 7.5 MG/DL (8.5-10.1)
[2019-05-27] MEDS: INSULIN REGULAR 100 UNIT/ML SUBCUT SCH ×3 (05:20→18:33)
[2019-05-27 05:27] LABS: Prealbumin 17.3 MG/DL (20-40)
[2019-05-27 05:35] LABS: Hypochromasia 1+; Lymphocytes 2 % (20-55); Platelet Estimate Adequate; Segmented Neutrophils 94 % (50-85); Total Cells Counted 100
[2019-05-27 05:36] LABS: Microcytosis Slight
[2019-05-27] MEDS: DORNASE ALFA 2.5 MG/2.5 ML VIAL RESP TX SCH ×2 (07:33→20:30)
[2019-05-27] MEDS: ASPIRIN CHEW 81 MG TABLET PO SCH (08:43)
[2019-05-27] MEDS: ATORVASTATIN 20 MG TABLET PO SCH (08:44)
[2019-05-27] MEDS: LOSARTAN 25 MG TABLET PO SCH (08:44)
[2019-05-27] MEDS: CITALOPRAM 20 MG TABLET PO SCH (08:44)
[2019-05-27] MEDS: ENOXAPARIN 40 MG/0.4 ML SYRINGE SUBCUT SCH (08:45)
[2019-05-27] MEDS: QUEtiapine 25 MG TABLET PO SCH ×2 (08:45→17:39)
[2019-05-27] MEDS: amLODIPine 5 MG TABLET PO SCH (08:45)
[2019-05-27] MEDS: MONTELUKAST 10 MG TABLET PO SCH ×2 (08:45→21:49)
[2019-05-27] MEDS: RANITIDINE 150 MG/10 ML 30 ML BOTTLE PER TUBE SCH ×2 (08:45→22:09)
[2019-05-27] MEDS: EZETIMIBE 10 MG TABLET PO SCH (08:45)
[2019-05-27] MEDS: ALBUTEROL 0.4 MG/ML 30 ML/BOTTLE PER TUBE SCH ×3 (08:45→21:49)
[2019-05-27] MEDS ORDERED: SODIUM CHLORIDE 0.9% 1,000 ML IV PRN (09:01)
[2019-05-27] MEDS ORDERED: QUEtiapine 25 MG TABLET PO ONE (13:00)
[2019-05-27] MEDS: ACETAMINOPHEN 325 MG TABLET PO PRN (13:41)
[2019-05-27 14:12] LABS: ABG HCO3 31.8 MMOL/L (20-26); ABG Oxygen Saturation 96.1 % (95-100); ABG PH 7.366 (7.35-7.45); ABG PO2 80.6 MM HG (80-95); ABG TCO2 32.5 MMOL/L (23-27); Allen Test Positive
[2019-05-27] MEDS ORDERED: FUROSEMIDE 40 MG/4 ML VIAL IV ONE (14:30)
[2019-05-27] MEDS: FLUCONAZOLE INJ 200 MG in PREMIX 1 EACH IV SCH (16:40)
[2019-05-27] MEDS ORDERED: LORazepam 2 MG/1 ML VIAL ONE (18:22)
[2019-05-27] MEDS: hydrALAZINE 20 MG/1 ML VIAL IV PRN (20:37)
[2019-05-28] MEDS: INSULIN REGULAR 100 UNIT/ML SUBCUT SCH ×4 (00:38→17:40)
[2019-05-28] MEDS: ALBUTEROL/IPRATROPIUM 3 ML NEB RESP TX SCH ×7 (01:00→22:51)
[2019-05-28] MEDS: METOPROLOL TARTRATE 50 MG TABLET PO SCH ×4 (04:02→21:15)
[2019-05-28] MEDS: methylPREDNISolone SOD SUC 40 MG/1 ML VIAL IV SCH ×2 (04:03→15:29)
[2019-05-28] MEDS: THEOPHYLLINE 5.33 MG/ML 30 ML/BOTTLE PER TUBE SCH ×4 (04:03→21:16)
[2019-05-28 04:42] LABS: ABG Base Excess 11.2 MMOL/L (-2.5-2.5); ABG HCO3 34.9 MMOL/L (20-26); ABG Oxygen Saturation 91.3 % (95-100); ABG PCO2 51.8 MM HG (35-48); ABG PH 7.459 (7.35-7.45); ABG PO2 58.9 MM HG (80-95); ABG TCO2 33.8 MMOL/L (23-27); Allen Test Positive
[2019-05-28 05:18] LABS: Basophils % 0.1 % (0.0-0.8); Hematocrit 29.2 VOL% (42.0-52.0); Hemoglobin 8.8 GM/DL (14.0-18.0); Immature Granulocytes % 1.4 %; Immature Granulocytes Absolute 0.15 #; Lymphocytes # 0.6 10*3/uL (1.4-4.0); Mean Corpuscular HGB Conc 30.1 GM/DL (32-36); Mean Platelet Volume 11.4 FL (9.6-12.0); Monocytes % 3.6 % (1.7-12.7); NRBC # 0.04 10*3/uL; Neutrophils % 89.9 % (38.7-73.9); Platelet Count 195 T/CUMM (130-400); Red Blood Count 2.92 MC/CUMM (3.8-5.5); Red Cell Distribution Width 18.8 % (9.3-17.3); White Blood Count 11.1 T/CUMM (4-12)
[2019-05-28] MEDS: LORazepam 2 MG/1 ML VIAL IV PRN ×2 (05:20→23:14)
[2019-05-28] MEDS: hydrALAZINE 20 MG/1 ML VIAL IV PRN (05:20)
[2019-05-28 05:37] LABS: Calcium 8.6 MG/DL (8.5-10.1); Osmolality,Calculated 304.1 MOS/KG (273-304)
[2019-05-28] MEDS: DORNASE ALFA 2.5 MG/2.5 ML VIAL RESP TX SCH ×2 (08:17→20:00)
[2019-05-28] MEDS: MONTELUKAST 10 MG TABLET PO SCH ×2 (08:45→21:15)
[2019-05-28] MEDS: EZETIMIBE 10 MG TABLET PO SCH (08:45)
[2019-05-28] MEDS: ATORVASTATIN 20 MG TABLET PO SCH (08:45)
[2019-05-28] MEDS: LOSARTAN 25 MG TABLET PO SCH (08:45)
[2019-05-28] MEDS: ASPIRIN CHEW 81 MG TABLET PO SCH (08:46)
[2019-05-28] MEDS: CITALOPRAM 20 MG TABLET PO SCH (08:46)
[2019-05-28] MEDS: amLODIPine 5 MG TABLET PO SCH (08:46)
[2019-05-28] MEDS: ENOXAPARIN 40 MG/0.4 ML SYRINGE SUBCUT SCH (08:47)
[2019-05-28] MEDS: RANITIDINE 150 MG/10 ML 30 ML BOTTLE PER TUBE SCH ×2 (08:47→21:15)
[2019-05-28] MEDS ORDERED: MORPHINE 4 MG/1 ML VIAL IV ONE ×2 (09:00→09:54)
[2019-05-28] MEDS ORDERED: MORPHINE 4 MG/1 ML VIAL ONE (09:03)
[2019-05-28] MEDS: ALBUTEROL 0.4 MG/ML 30 ML/BOTTLE PER TUBE SCH ×3 (09:08→21:16)
[2019-05-28] MEDS ORDERED: HALOPERIDOL 5 MG/ML AMP IV ONE (09:54)
[2019-05-28] MEDS ORDERED: LORazepam 2 MG/1 ML VIAL IV ONE (09:54)
[2019-05-28] MEDS: MORPHINE 4 MG/1 ML VIAL IV PRN ×3 (12:10→23:14)
[2019-05-28] MEDS: QUEtiapine 25 MG TABLET PO SCH (18:39)
[2019-05-29] MEDS: INSULIN REGULAR 100 UNIT/ML SUBCUT SCH ×3 (00:45→12:10)
[2019-05-29] MEDS: MORPHINE 4 MG/1 ML VIAL IV PRN ×2 (02:00→05:00)
[2019-05-29] MEDS: METOPROLOL TARTRATE 50 MG TABLET PO SCH ×4 (02:05→20:23)
[2019-05-29] MEDS: THEOPHYLLINE 5.33 MG/ML 30 ML/BOTTLE PER TUBE SCH ×3 (02:05→15:32)
[2019-05-29] MEDS: ALBUTEROL/IPRATROPIUM 3 ML NEB RESP TX SCH ×6 (03:16→23:20)
[2019-05-29] MEDS: methylPREDNISolone SOD SUC 40 MG/1 ML VIAL IV SCH ×2 (04:05→17:56)
[2019-05-29 04:16] LABS: Allen Test Positive; Pt O2 Delivery Device BIPAP
[2019-05-29 04:17] LABS: ABG Base Excess 12.7 MMOL/L (-2.5-2.5); ABG HCO3 36.4 MMOL/L (20-26); ABG Oxygen Saturation 94.5 % (95-100); ABG PCO2 62.1 MM HG (35-48); ABG PH 7.412 (7.35-7.45); ABG PO2 70.4 MM HG (80-95); ABG TCO2 36.5 MMOL/L (23-27)
[2019-05-29 04:33] LABS: Basophils % 0.1 % (0.0-0.8); Hematocrit 28.8 VOL% (42.0-52.0); Hemoglobin 8.5 GM/DL (14.0-18.0); Immature Granulocytes Absolute 0.09 #; Lymphocytes # 0.5 10*3/uL (1.4-4.0); Lymphocytes % 5.1 % (21.2-54.2); Mean Corpuscular HGB Conc 29.5 GM/DL (32-36); Mean Corpuscular Volume 101.8 FL (87-102); Mean Platelet Volume 11.2 FL (9.6-12.0); Monocytes % 5.3 % (1.7-12.7); NRBC # 0.02 10*3/uL; Neutrophils % 88.5 % (38.7-73.9); Platelet Count 230 T/CUMM (130-400); Red Blood Count 2.83 MC/CUMM (3.8-5.5); Red Cell Distribution Width 18.1 % (9.3-17.3); White Blood Count 9.1 T/CUMM (4-12)
[2019-05-29 04:53] LABS: Calcium 8.9 MG/DL (8.5-10.1); Osmolality,Calculated 306.1 MOS/KG (273-304)
[2019-05-29] MEDS: LORazepam 2 MG/1 ML VIAL IV PRN (05:00)
[2019-05-29] MEDS: POTASSIUM CHLORIDE RIDER 10 MEQ in PREMIX 1 EACH IV PRN ×2 (05:01→06:10)
[2019-05-29] MEDS: DORNASE ALFA 2.5 MG/2.5 ML VIAL RESP TX SCH ×2 (07:59→20:09)
[2019-05-29 09:34] VITALS: BP 126/61
[2019-05-29] MEDS: MORPHINE 4 MG/1 ML VIAL IV SCH ×7 (10:07→17:44)
[2019-05-29] MEDS: ATORVASTATIN 20 MG TABLET PO SCH (10:18)
[2019-05-29] MEDS: CITALOPRAM 20 MG TABLET PO SCH (10:18)
[2019-05-29] MEDS: LOSARTAN 25 MG TABLET PO SCH (10:18)
[2019-05-29] MEDS: ASPIRIN CHEW 81 MG TABLET PO SCH (10:18)
[2019-05-29] MEDS: ENOXAPARIN 40 MG/0.4 ML SYRINGE SUBCUT SCH (10:19)
[2019-05-29] MEDS: EZETIMIBE 10 MG TABLET PO SCH (10:19)
[2019-05-29] MEDS: amLODIPine 5 MG TABLET PO SCH (10:19)
[2019-05-29] MEDS: MONTELUKAST 10 MG TABLET PO SCH (10:19)
[2019-05-29] MEDS: RANITIDINE 150 MG/10 ML 30 ML BOTTLE PER TUBE SCH ×2 (10:22→20:24)
[2019-05-29] MEDS: ALBUTEROL 0.4 MG/ML 30 ML/BOTTLE PER TUBE SCH ×3 (10:22→20:36)
[2019-05-29] MEDS ORDERED: MORPHINE 4 MG/1 ML VIAL IV PRN (17:17)
[2019-05-29] MEDS: ACETAMINOPHEN 325 MG TABLET PO PRN (18:26)
[2019-05-30] MEDS: METOPROLOL TARTRATE 50 MG TABLET PO SCH (02:10)
[2019-05-30] MEDS: ALBUTEROL/IPRATROPIUM 3 ML NEB RESP TX SCH (03:31)
[2019-05-30 05:20] LABS: Prealbumin 10.3 MG/DL (20-40)
[2019-05-30] MEDS: methylPREDNISolone SOD SUC 40 MG/1 ML VIAL IV SCH (05:50)
== END 2019-05-30 06:38 | disposition expired | DRG 870 ==
LOC: EDBD → EDUNIT# → N.ED 14:15 → N.EDINP 15:42 → SUATTDRO 15:42 → N.EDINP 18:11
PROVIDERS: ADMIT Internal Medicine; ATTEND Internal Medicine